=== PATIENT | female | born 1925 | race Asian ===

== ENCOUNTER 2016-06-16 18:10 | Observation (INO) | payer MEDICARE, MEDICAID ==
[~2016-06-16] VITALS: Ht 147.3 cm; Wt 54.5 kg
[~2016-06-16 18:10] MED LIST: ACET325T51 PO; CEPH500C PO; OMEG500C3 PO
[2016-06-16 18:15] VITALS: BP 168/73; PULSE 69; RESP 16; O2SAT 98
[2016-06-16 19:34] LABS: BASOPHILS % (AUTO) 0.2 % (0-3); EOSINOPHILS % (AUTO) 3.3 % (0-5); MONOCYTES % (AUTO) 11.4 % (4-12); Mean Corpuscular Hemoglobin 31.4 pg (27.0-35.0); Mean Corpuscular Volume 87.8 fL (81-100); NEUTROPHILS % (AUTO) 53.9 % (40-74); Platelet Count 201 bil/L (150-400)
--- NOTE | 2016-06-16 19:40 | ED.REPORT ---
HPI-General Illness Date of Service Jun 16, 2016 ED Provider: Pop Zurita MD Pt is an 89 year old Mandarin speaking female with a hx of HTN, UTI and hyperlipidemia presenting to the ED complaining of headaches, dizziness, weakness onset 5 days ago. Associated symptoms include body aches, nausea, cough , fatigue, increased urinary frequency, increased work to urinate, sore throat. Denies fever currently, but reports that the pt did have a mild fever at the beginning. Denies SOB or hx of lung problems. The pt is surendra to drink fluid okay , but has had a decreased appetite. The pt was seen in the ED 4 days ago and was discharged with a viral infection. The pt last took Tylenol twice yesterday. She reports that she got her flu shot this year. Nursing Notes Stated Complaint: DIZZINESS,NAUSEA Chief Complaint: General Complaint Nursing Notes Reviewed: Yes ([employer], [employer] not reconciled) Allergies: Uncoded Allergies: AN ANTIBIOTIC (Allergy, Unknown, 05/09/14) Scheduled Cephalexin (Cephalexin) 500 Mg Capsule 500 MG PO TID Scheduled PRN Acetaminophen (Acetaminophen) 325 Mg Tablet 650 MG PO Q4H PRN PRN For Pain Miscellaneous Medications [place]-3 Fatty Acids (Fish Oil) 500 Mg Capsule 500 MG PO General Time Seen by MD: 19:37 Chief Complaint Dizziness, Headache, Weakness Hx Obtained From: Patient, Daughter Arrived By: Walk-in Sudden in Onset?: No Onset Occurred: 5 days ago Symptom Duration: Since onset Severity: Current: No pain currently Severity: Maximum: No pain Recent Healthcare: No recent hospitalization, Recent doctor visit Similar Sx Previous: Yes Past Medical History Past Medical History Notes: PCP: Dr. Allison Admitted 04/05/2015 for headache, lightheadedness, hypertension MRI/MRA brain April 10 negative acute disease Echocardiogram March 2015 EF of 6065% Past Medical History Parkinson's Syndrome Denies ME. Arthritis, R knee Heartburn Reports: Hyperlipidemia, Hypertension Reports: Urinary tract infection Past Surgical History Pt denies. Smoking History Never Smoker Social History Alcohol Use: Denies alcohol use Drug Use: Denies drug use Other Social History: Good social support, Local resident Occupation lives with family 06/13/2016 Ambulatory Status Independent Review of Systems Full Review of Systems Constitutional: Reports: Fatigue, Denies: Fever Ears / Nose / Throat: Reports: Sore throat Respiratory: Reports: Non-productive cough, Denies: Shortness of breath GI: Reports: Nausea Female: Reports: Urinary frequency Neurologic: Reports: Dizziness, Headache, Weakness Complete sys rev & neg: except as marked. Physical Exam Vital Signs Vital Signs Date Time Temp Pulse Resp B/P Pulse Ox O2 Delivery O2 Flow Rate FiO2 06/16/16 20:46 67 15 121/63 100 Room Air 06/16/16 18:15 36.1 69 16 168/73 98 Room Air Initial VS: Reviewed, Vital signs abnormal (mild HTN) Head / Eyes: Atraumatic, Normocephalic, PERRL ENT: Mucous membranes moist, Conjunctiva normal, No scleral icterus Cardiovascular: Regular rate & rhythm, Heart sounds normal, Intact distal pulses Abdomen / GI: Soft, Non-tender, No guarding, No rebound, No distention Extremities: Vascular intact, Neuro intact, No swelling, No tenderness Skin: Warm, Dry, No cyanosis Neurologic: Alert, Oriented, Nonfocal Psychiatric: Mood/affect normal, Behavior normal, Normal thought content General/Constitutional: Awake, Alert, No acute distress Globally fatigued and weak. Respiratory / Chest: No respiratory distress Coarse breath sounds. Not tachypnic or dyspnic. Interpretation & Diagnostics Lab Results Interpretation Result Diagram: 06/16/16191506/16/16 191 Test 06/16/16 19:16 06/16/16 20:25 White Blood Count 4.5th/mm3 (3.8-10.1) Red Blood Count 4.01mil/mm3 (3.90-5.20) Hemoglobin 12.6g/dL (12.0-15.6) Hematocrit 35.2% (35.0-46.0) Mean Corpuscular Volume 87.8fL (81-100) Mean Corpuscular Hemoglobin 31.4pg (27.0-35.0) Mean Corpuscular Hemoglobin Concent 35.8% (32.0-37.0) Red Cell Distribution Width 11.5% (12.3-15.4) Platelet Count 201bil/L (150-400) Neutrophils (%) (Auto) 53.9% (40-74) Lymphocytes (%) (Auto) 31.0% (14-46) Monocytes (%) (Auto) 11.4% (4-12) Eosinophils (%) (Auto) 3.3% (0-5) Basophils (%) (Auto) 0.2% (0-3) Sodium Level 127mEq/L (134-144) Potassium Level 3.9mEq/L (3.5-5.2) Chloride Level 90mEq/L (97-108) Carbon Dioxide Level 22mmol/L (18-29) Blood Urea Nitrogen 11mg/dL (8-27) Creatinine 0.54mg/dL (0.57-1.00) Estimat Glomerular Filtration Rate 152mL/min (>59) Glucose Level 108mg/dL (60-99) Lactic Acid Level 1.4mmol/L (0.4-2.0) Calcium Level 8.7mg/dL (8.5-10.1) Total Bilirubin 0.2mg/dL (0.0-1.2) Aspartate Amino Transf (AST/SGOT) 40U/L (0-50) Alanine Aminotransferase (ALT/SGPT) 22U/L (0-32) Alkaline Phosphatase 77U/L (25-165) Total Protein 8.0g/dL (6.4-8.4) Albumin 3.7g/dL (3.4-5.0) Hold Dodd Top Tube Received (Received) Lab Results Interpretation: cBC normal CMP mild hyponatremia Influenza A positive Lactic acid normal Blood cultures pending ECG Interpretation ECG Interpretation: No ischemic changes. No interval changes. Time: 19:28 Interpreted by: ED physician Normal ECG Interpretation: Normal sinus rhythm X-Ray Chest Interpretation Chest Xray Interpretation: IMPRESSION: No acute cardiopulmonary disease. Dictated by: Segun Logan M.D. on 06/16/2016 at 20:53 View: Portable, 1 view Interpretation / Wet Read by: Interpret - Radiologist Re-Eval/Medical Decision Med Decision/Clinical Course This is an 89-year-old female who speaks Mandarin, remainder underneath helmet coverer was used with the patient and the family. His been ill for the past 5 days, with cough, congestion, body achesin the emergency department a few days ago had an extensive workup included a negative chest CT, it was suspected to have a viral syndrome. She was discharged on Tessalon Perles. The patient presents today in complaining of increasing profound fatigue, she is a little strength is a hard time getting out of bed, she is continuous dizziness, she has a persistent hacking cough, she gets a headache when she coughs. The Tessalon Perles as she thought that might be contributing to the dizziness. She had fevers and beginning the illness, but states she has not had fever for the past 2 days. Her appetite and markedly down, but there is family reports she is still taking fluids. However she has been so weak and so dizzy, that the patient and the family states she is not safe for discharge back to home. On exam the patient is not febrile, she has normal vitals, but she is globally weak. She has a mild cough, but is not in distress, and does not appear toxic. Her lungs are coarse, but again no tachypnea or dyspnea is evident. Abdomen is soft nontender, extrinsic atraumatic with globally weak. A repeat chest x-ray was negative for infiltrate. Blood work was normal. Influenza A is positive. Overall this is an 89-year-old females influenza A positive presents with profound ongoing global weakness to the point that she does not feel safe at home. Nonspecific dizziness, also likely secondary to influenza A. However she is not formally septic, she does not have markers of a secondary pneumonia, I had a recent CT of the chest, and today had a chest x-ray and is now laboratory findings to suggest a secondary infection. Nonetheless with the second visit, with a profound weakness inability in bili, and patient and family saying she is not safe at home, admission is warranted. Patient is receiving supportive IV fluids, given admission in the setting of influenza Tamiflu as been initiated despite the 5 day duration of initial illness. Case is discussed with hospitalist. Source of Hx: Old records Time of Eval: 20:26 Patient Status: Condition improved Re-Evaluation/Progress Note: Informed the pt of positive influenza. Consultation : Referral / Consult Name: Tootie Woodson MD Consulted With: Hospitalist Call Returned at: 21:14 Safety And Health Consultant: Will see patient, Agrees with plan, Accepts admit Differential Diagnosis: Positive: Influenza, Negative: Abdominal pain, Acute coronary syndrome, Neutropenia, Pneumonia, Syncope Counseled Regarding: Diagnosis, Lab results, Need for follow-up, When/why to return to ED Discharge & Departure Primary Impression: Influenza A Additional Impressions: Generalized weakness Dizziness Disposition: ADMITTED TO HOSPITAL Discharge Condition All VS Reviewed: Yes Condition: Improved Referrals: Anh Allison MD (PCP) Scribe Attestation Portions of this note were transcribed by Evelyn Sommer. I, Dr. Zurita personally performed the history, physical exam and medical decision-making; I reviewed and confirmed the accuracy of the information in the transcribed note. Signed by: Durga Kelly, 06/16/2016 at (TIME). copies to: Anh Allison MD, Matthew F MD Jun 16, 2016 19:40 EVELYN SOMMER Jun 16, 2016 19:45
[2016-06-16] MEDS ORDERED: 0.9% Sodium Chloride 1,000 ML IV ONE (20:10)
[2016-06-16 20:46] VITALS: BP 121/63; PULSE 67; RESP 15; O2SAT 100
--- NOTE | 2016-06-16 20:56 | DRSVH ---
PROCEDURE: X-RAY CHEST ONE VIEW, PORTABLE ([id number]) INDICATIONS: 89 year-old female with fever and cough for one week. TECHNIQUE: One view of the chest was acquired. COMPARISON: [facility], CR, XR CHEST 2VW, 06/13/2016, 16:02. [facility], CR , XR CHEST 1VW (PORTABLE), 07/10/2015, 11:41. [facility], CR, XR CHEST 1VW (PORTABLE), , 23:34. FINDINGS: Surgical changes and devices: None. Lungs and pleura: No pleural effusions or pneumothorax. Lungs are clear. Mediastinum: Mediastinal contours appear normal. Heart size is normal. There is aortic atheroscler osis. Bones and chest wall: No suspicious bony lesions. Overlying soft tissues appear unremarkable. IMPRESSION: No acute cardiopulmonary disease. Dictated by: Segun Logan M.D. on 06/16/2016 at 20:53 Approved by: Segun Logan M.D. on 06/16/2016 at 20:53
[2016-06-16 21:22] LABS: APPEARANCE,URINE CLEAR (CLEAR,HAZY); COLOR,URINE STRAW (YELLOW); OCCULT BLOOD,URINE TRACE (NEGATIVE); PH,URINE 6.5 (5.0-8.0); UROBILINOGEN,URINE NORMAL (NORMAL)
[2016-06-16 21:23] VITALS: BP 138/58; PULSE 65; RESP 18; O2SAT 98
[2016-06-16 21:24] VITALS: BP 138/58; PULSE 65; RESP 18; O2SAT 98
[2016-06-16] MEDS ORDERED: Polyethylene Glycol (PEG) 17 Gm Powder PO PRN (22:15)
[2016-06-16] MEDS ORDERED: Ondansetron 2 mg/mL 2 mL Inj IVPUSH PRN (22:15)
[2016-06-16] MEDS ORDERED: 0.9% Sodium Chloride 1,000 ML IV SCH (22:15)
[2016-06-16] MEDS ORDERED: Alum-Mag Hydrox-Simeth 30 mL Suspension PO PRN (22:15)
[2016-06-16 22:43] VITALS: BP 147/58; PULSE 67; RESP 19; O2SAT 98
[2016-06-16] MEDS ORDERED: Azithromycin Inj 500 MG in Dextrose 5% w/Vial Mate 250 ML IV SCH (23:00)
[2016-06-16] MEDS ORDERED: cefTRIAXone Inj 2,000 MG in IV Premix 1 EACH IV SCH (23:30)
[2016-06-16] MEDS: 0.9% Sodium Chloride 1,000 ML IV SCH (23:32)
--- NOTE | 2016-06-17 00:17 | PCM.HPMED ---
Subjective Date of Service Jun 17, 2016 Primary Provider: Admitting Physician: Tootie Woodson MD Primary Care Physician: Anh Allison MD Attending Physician: Tootie Woodson MD Chief Complaint: Patient is an 89-year-old female without significant medical history recently in [facility] 06/13/2016 with flulike symptoms and diagnosed upper respiratory track viral infection presents today with increase fatigue. Symptoms started about 5-6 days ago with initially, cough, chills, fever, and body aches. She went to the ED at that time with chest x-ray not suggestive of pneumonia, however, incidentally found bilateral lung nodular opacity instead. Further CT scan however was unremarkable. She was discharged home with Carmen Rocha for the cough. [id number] brought her back today due to her increasing fatigue. Patient still reports chills, decreased appetite, however no fevers, night sweats, nausea, vomiting, or diarrhea. Daughter-in- law did mention of a sick contact last week. Patient's son-in-law had the flu at that time. Patient admitted for medical observation, possible post viral pneumonia. Allergies Uncoded Allergies: AN ANTIBIOTIC (Allergy, Unknown, 05/09/14) Home Medications Medication list obtained from patient and external medication history Valsartan 80 mg daily Acetaminophen 325 mg 2 tab every 4 hours when necessary [place]-3 fatty acid 500 mg by mouth daily PMH Urinary incontinence Hypertension Dyslipidemia Surgical History Denies any surgical history Family History No family history of lung disease Social History Occupation: retired Hx Alcohol Use: No Hx Substance Use: No Hx Tobacco Use: No Smoking Status: Never Smoker Living Arrangement: with Family (son and [id number]) Exam Vital Signs Vital Sign - Last Date Time Temp Pulse Resp B/P Pulse Ox O2 Delivery O2 Flow Rate FiO2 06/16/16 22:43 37.4 67 19 147/58 98 Room Air Intake and Output 06/16/16 06/16/16 06/17/16 Cumulative From/Thru 15:00 23:00 07:00 06/16/16 18:15 - 06/16/16 23:51 Intake Total 700 ml 700 ml Balance 700 ml 700 ml Intake IV Total 700 ml 700 ml Exam General: No acute distress, well-developed, well-nourished, appropriately interactive HEENT: Normocephalic, atraumatic. External ears without defect. Pupils equal, round, and reactive to light and accommodation. Anicteric sclerae, moist conjunctivae, and no lid lag. Neck: Supple with full range of motion. No jugular venous distension. No bruits. No lymphadenopathy or thyromegaly. Cardiovascular: Regular rate and rhythm with no murmurs, rubs, or gallops appreciated Pulmonary: Mild crackles on the lower bases, no wheezes, coarse breaths. Normal respiratory effort with no use of accessory muscles. Abdomen: Bowel tones present. Soft, nontender, nondistended. No hepatosplenomegaly or masses appreciated. Extremities: No clubbing, cyanosis, edema, or lymphadenopathy appreciated. Skin: Normal temperature, turgor, and texture; no rash, ulcers, or subcutaneous nodules appreciated. Neurological: Cranial nerves grossly intact. Normal muscle strength, tone, and bulk. Reflexes, coordination, and sensory function within normal limits. No known gait impairment. Psychiatric: Normal mood and affect. Alert and oriented to person, place, and time. Lab and Diagnostics Result Diagram: 06/16/16191506/16/161915 X-Rays, CTs and MRIs PROCEDURE: CT CHEST WITH CONTRAST INDICATIONS: cough nodular opacities IMPRESSION: 1. No evidence of pulmonary nodular densities as suggested by CT. Dictated by: Mauricio Evans M.D. on 06/13/2016 at 17:51 PROCEDURE: X-RAY CHEST ONE VIEW, PORTABLE INDICATIONS: 89 year-old female with fever and cough for one week. IMPRESSION: No acute cardiopulmonary disease. Dictated by: Segun Logan M.D. on 06/16/2016 at 20:53 Assessment & Plan Pt 89yof without significant medical hx was recently here for flu-like symptoms returns with increase fatigue, tested positive for influenza A, admits for observation. Post-viral pneumonia - SIRS negative, no leukocytosis. - Recently in ED (06/13) for cold-like symptoms, d/c with Carmen Rocha - Influenza A positive today - Started Tamiflu in ED, added ceftriaxone with azithromycin for CAP coverage - Procalcitonin S. pneumoniae, legionella urine Ag, blood, urine, sputum culture pending Hyponatremia - uncertain etiology - Normal saline - Serum osmolality Hypertension - losartan 50mg daily DVT prophylaxis: heparin subQ Antipyretic: Acetaminophen PRN Antinausea: Ondansetron PRN Bowel regiment PRN Patient is admitted under observation status with expected length of stay LESS than 2 midnights due to severity of presenting symptoms, risk of adverse event, and complexity of treatment plan. Resuscitation Status: CPR: Attempt Resuscitation Attending Statement Pt seen and examined by myself and agree with above plan. Max Cowan DO Jun 17, 2016 00:17 Tootie Woodson MD Jun 17, 2016 06:25
[2016-06-17] MEDS: Heparin 5,000 Unit/mL Inj SUBQ SCH ×2 (02:19→08:30)
--- NOTE | 2016-06-17 04:47 | NUR ---
Arrival to unit Patient arrived to unit at 2235 from ED via [place]. Patient was able to ambulate with SBA to hospital bed. Consumer Marketing Manager was used during admission process. Patient denies any pain at this time. IV in left wrist is patent and is currently infusing NS @ 100cc/hr, with intermittent abx administration. Droplet Precautions are posted on door. Patient is currently on room air, and and denies and shortness of breath. Patient is hypertensive 147/58, with all other vitals stable. Will continue to monitor, and continue Q1 checks.
[2016-06-17 06:03] VITALS: BP 118/55; PULSE 53; RESP 16; O2SAT 98
[2016-06-17] MEDS: 0.9% Sodium Chloride 1,000 ML IV SCH (08:59)
[2016-06-17 09:41] LABS: BASOPHILS % (AUTO) 0.7 % (0-3); EOSINOPHILS % (AUTO) 3.3 % (0-5); MONOCYTES % (AUTO) 8.3 % (4-12); Mean Corpuscular Hemoglobin 31.2 pg (27.0-35.0); Mean Corpuscular Volume 89.5 fL (81-100); NEUTROPHILS % (AUTO) 39.8 % (40-74); Platelet Count 180 bil/L (150-400)
[2016-06-17 10:03] LABS: Phosphorus 2.6 mg/dL (2.5-4.9)
[2016-06-17 10:48] VITALS: BP 125/66; PULSE 58; RESP 15; O2SAT 98
[2016-06-17] MEDS ORDERED: OSLT75C PO (11:44)
--- NOTE | 2016-06-17 11:44 | PCM.DIMED ---
Discharge Instructions Date of Service Jun 17, 2016 Dates of Hospitalization Jun 16, 2016 at 21:09 Discharge Diagnosis Discharge Diagnosis # Influenza A infection,acute,poa # Hypertension ,chronic Diet Low fat, Low Sodium, Heart Healthy Activity Limited until seen by PCP Call your provider Fever or Chills, Shortness of breath, Bleeding, Chest pain, Vomitting, Excessive diarrhea, Weakness (unilateral) Patient Instructions You were hospitalized due to influenza A infection. Please take Tamiflu 75 mg by mouth twice a day for 5 days. Please continue your blood pressure medications as usual. Follow-up plan Please follow-up with PCP in 1 week Follow-up Provider: Anh Allison MD Follow-up with PCP in: 1 week Jerardo Greene MD Jun 17, 2016 11:43
--- NOTE | 2016-06-17 12:46 | NUR ---
Discharge Pt d/c'd home with family at 1245. Reviewed d/c' instruction w/ her daughter. No questions at this time. IV d/c's intact. Pt left w/ hard copy of RX and all belongings and was taken to her family's POV via w/c.
--- NOTE | 2016-06-17 12:46 | PCM.DC.MED ---
Discharge Summary Date of Service Jun 17, 2016 Dates of Hospitalization Date of Hospital Admission Jun 16, 2016 at 21:09 Date of Discharge: Jun 17, 2016 Providers: Admitting Physician: Tootie Woodson MD Primary Care Physician: Anh Allison MD Attending Physician: Tootie Woodson MD Diagnosis at Time of Discharge Diagnosis at Time of Discharge # Influenza A infection,acute,poa # Hypertension ,chronic Consultations No independent beauty consultant was involved on this case Procedures XRay, CTs & MRIs PROCEDURE: CT CHEST WITH CONTRAST INDICATIONS: cough nodular opacities IMPRESSION: 1. No evidence of pulmonary nodular densities as suggested by CT. Dictated by: Mauricio Evans M.D. on 06/13/2016 at 17:51 PROCEDURE: X-RAY CHEST ONE VIEW, PORTABLE INDICATIONS: 89 year-old female with fever and cough for one week. IMPRESSION: No acute cardiopulmonary disease. Dictated by: Segun Logan M.D. on 06/16/2016 at 20:53 Brief History as per HPI performed by Dr Black on 06/17/16 Patient is an 89-year-old female without significant medical history recently in [facility]-ED 06/13/2016 with flulike symptoms and diagnosed upper respiratory track viral infection presents today with increase fatigue. Symptoms started about 5-6 days ago with initially, cough, chills, fever, and body aches. She went to the ED at that time with chest x-ray not suggestive of pneumonia, however, incidentally found bilateral lung nodular opacity instead. Further CT scan however was unremarkable. She was discharged home with Tessalon Perles for the cough. [id number] brought her back today due to her increasing fatigue. Patient still reports chills, decreased appetite, however no fevers, night sweats, nausea, vomiting, or diarrhea. Daughter-in- law did mention of a sick contact last week. Patient's son-in-law had the flu at that time. Patient admitted for medical observation, possible post viral pneumonia. Hospital Course Pt 89yof without significant medical hx was recently here for flu-like symptoms returns with increase fatigue, tested positive for influenza A, admits for observation. # Influenza A infection - SIRS negative, no leukocytosis. - Recently in ED (06/13) for cold-like symptoms, d/c with Tessalon Perles - Influenza A positive - Started Tamiflu , continue for 5 days, initially started ceftriaxone with azithromycin for CAP coverage. Pro-calcitonin negative. Stop antibiotics - Patient initially reluctant to take medications. Explained to son and patient using language line. Agree to take Tamiflu #Hyponatremia , acute, POA, resolved - uncertain etiology - Improved with Normal saline Hypertension - losartan 50mg daily DVT prophylaxis: heparin subQ Antipyretic: Acetaminophen PRN Antinausea: Ondansetron PRN Bowel regiment PRN Disposition: Discharged home Condition on discharge stable Exam Vital Signs (Last) Date Time Temp Pulse Resp B/P Pulse Ox O2 Delivery O2 Flow Rate FiO2 06/17/16 10:48 36.6 58 15 125/66 98 Room Air Exam General: No acute distress, well-developed, well-nourished, appropriately interactive HEENT: Normocephalic, atraumatic. External ears without defect. Pupils equal, round, and reactive to light and accommodation. Anicteric sclerae, moist conjunctivae, and no lid lag. Neck: Supple with full range of motion. No jugular venous distension. No bruits. No lymphadenopathy or thyromegaly. Cardiovascular: Regular rate and rhythm with no murmurs, rubs, or gallops appreciated Pulmonary: Mild crackles on the lower bases, no wheezes, coarse breaths. Normal respiratory effort with no use of accessory muscles. Abdomen: Bowel tones present. Soft, nontender, nondistended. No hepatosplenomegaly or masses appreciated. Extremities: No clubbing, cyanosis, edema, or lymphadenopathy appreciated. Skin: Normal temperature, turgor, and texture; no rash, ulcers, or subcutaneous nodules appreciated. Neurological: Cranial nerves grossly intact. Normal muscle strength, tone, and bulk. Reflexes, coordination, and sensory function within normal limits. No known gait impairment. Psychiatric: Normal mood and affect. Alert and oriented to person, place, and time. Test 06/16/16 19:16 06/16/16 20:25 06/17/16 09:14 Osmolality 285 (275-300) Lactic Acid Level 1.4mmol/L (0.4-2.0) Procalcitonin < 0.05ng/mL (See Comment) Hold Dodd Top Tube Received (Received) Urine Color Straw (YELLOW) Urine Appearance Clear (CLEAR,HAZY) Urine pH 6.5 (5.0-8.0) Urine Specific [place] <1.005 (1.003-1.035) Urine Protein Negativemg/dL (NEG,TRACE) Urine Glucose (UA) Negativemg/dL (NEGATIVE) Urine Ketones Negativemg/dL (NEGATIVE) Urine Occult Blood Trace (NEGATIVE) Urine Nitrite Negative (NEGATIVE) Urine Bilirubin Negative (NEGATIVE) Urine Urobilinogen Normalmg/dL (NORMAL) Urine Leukocyte Esterase Trace (NEGATIVE) Urine RBC 0-2/hpf (0-2) Urine WBC 0-5/hpf (0-5) Urine Epithelial Cells Few/hpf (NONE-MOD) Urine Crystals None seen (NONE SEEN) Urine Bacteria Few/hpf (NONE-FEW) Urine Hyaline Casts None/lpf (NONE) Urine Granular Casts None seen (NONE SEEN) Urine Waxy Casts None seen (NONE SEEN) Urine Red Blood Cell Casts None seen (NONE SEEN) Urine White Blood Cell Casts None seen (NONE SEEN) Urine Mucus None seen (None Seen) Urine Trichomonas None seen (NONE SEEN) Urine Yeast None (NONE SEEN) Urinalysis Comment None Urine Culture Reflexed Indicated Urine Legionella pneumophilia Ag Negative (Negative) White Blood Count 3.0th/mm3 (3.8-10.1) Red Blood Count 3.62mil/mm3 (3.90-5.20) Hemoglobin 11.3g/dL (12.0-15.6) Hematocrit 32.4% (35.0-46.0) Mean Corpuscular Volume 89.5fL (81-100) Mean Corpuscular Hemoglobin 31.2pg (27.0-35.0) Mean Corpuscular Hemoglobin Concent 34.9% (32.0-37.0) Red Cell Distribution Width 11.7% (12.3-15.4) Platelet Count 180bil/L (150-400) Neutrophils (%) (Auto) 39.8% (40-74) Lymphocytes (%) (Auto) 47.9% (14-46) Monocytes (%) (Auto) 8.3% (4-12) Eosinophils (%) (Auto) 3.3% (0-5) Basophils (%) (Auto) 0.7% (0-3) Sodium Level 134mEq/L (134-144) Potassium Level 4.1mEq/L (3.5-5.2) Chloride Level 100mEq/L (97-108) Carbon Dioxide Level 21mmol/L (18-29) Blood Urea Nitrogen 6mg/dL (8-27) Creatinine 0.54mg/dL (0.57-1.00) Estimat Glomerular Filtration Rate 152mL/min (>59) Glucose Level 166mg/dL (60-99) Calcium Level 7.9mg/dL (8.5-10.1) Phosphorus Level 2.6mg/dL (2.5-4.9) Magnesium Level 2.0mg/dL (1.6-2.6) Total Bilirubin 0.2mg/dL (0.0-1.2) Aspartate Amino Transf (AST/SGOT) 35U/L (0-50) Alanine Aminotransferase (ALT/SGPT) 18U/L (0-32) Alkaline Phosphatase 61U/L (25-165) Total Protein 6.6g/dL (6.4-8.4) Albumin 3.3g/dL (3.4-5.0) Microbiology Results Positive for influenza A Discharge Medications Discharge Medications Oseltamivir Phosphate (Tamiflu) 10 Cap/Pkg Capsule 75 MG PO BID Prescribed by: DELROY PAYNE MD As needed Acetaminophen (Acetaminophen) 325 Mg Tablet 650 MG PO Q4H PRN PRN For Pain ( Reported) Miscellaneous Medications [place]-3 Fatty Acids (Fish Oil) 500 Mg Capsule 500 MG PO (Reported) Followup Plan Disposition: Home Follow-up plan Please follow-up with PCP in 1 week Discharge Diet: Low fat, Low Sodium, Heart Healthy Discharge Activity: Limited until seen by PCP Patient Instructions You were hospitalized due to influenza A infection. Please take Tamiflu 75 mg by mouth twice a day for 5 days. Please continue your blood pressure medications as usual. Follow-up Provider: Anh Allison MD Follow-up with PCP in: 1 week copies to: Anh Allison MD, Melaku MD Jun 17, 2016 12:46
--- NOTE | 2016-06-17 13:56 | NUR ---
Social Work Note: Initial Assessment/Discharge Data& Assessment: EMR reviewed. Per pt is medically ready for discharge. SW met with pt and pt family at bedside to discuss discharge planning, SW role explained. Geraldine Foley is a 89 year old female under observation for influenza. Pt has Medicare and [employer] insurance coverage. Pt sees Anh Allison MD for primary care. Pt lives in [place] with her daughter and is independent with ADL's at baseline. Pt daughter does stand by assist pt up the stairs to the second floor of the home. Pt does use a cane for long distances but does not use any DME on a regular basis. Pt does not have HH or SNF hx. Pt does not have LTC insurance or VA benefits. DPOA paperwork requested. Pt children to transport her home today. Pt and pt family deny any needs. No other discharge needs identified. Plan: Per pt is medically ready to discharge home via POV. Pt children to transport her home today. Pt and pt family deny any needs. No other discharge needs identified. RUBÉN Kwan Addendum: 06/17/16 at 1400 by CLAIRE SCHMITT Amended: Links added.
== END 2016-06-17 12:45 | disposition home or self-care (01) ==
LOC: SED 18:10 → OSC 21:09 → INTOOBSV 21:09 → OBSVTOIN 21:09
PROVIDERS: ADMIT Specialist; ATTEND Specialist
DX: J10.1 Influenza due to other identified influenza virus with other respiratory manifestations (principal); I10 Essential (primary) hypertension; E87.1 Hypo-osmolality and hyponatremia
CPT/HCPCS: 36415; 71010; 80053; 81000; 82308; 83605; 83735; 83930; 84100; 85025; 86403; 87040; 87070; 87086; 87205; 87449; 87804; 96360; 96361; 99285; J0456; J0696; J1644; J7030

== ENCOUNTER 2016-11-23 15:50 | Observation (INO) | payer MEDICARE, MEDICAID ==
[~2016-11-23] VITALS: Ht 147.3 cm; Wt 52.3 kg
[~2016-11-23 15:50] MED LIST changes: -CEPH500C PO; +OSLT75C PO
[2016-11-23 15:59] VITALS: BP 175/65; PULSE 65; RESP 14; O2SAT 99
[2016-11-23 16:14] LABS: BASOPHILS % (AUTO) 0.4 % (0-3); EOSINOPHILS % (AUTO) 2.8 % (0-5); MONOCYTES % (AUTO) 7.8 % (4-12); Mean Corpuscular Hemoglobin 31.6 pg (27.0-35.0); Mean Corpuscular Volume 91.8 fL (81-100); NEUTROPHILS % (AUTO) 40.4 % (40-74); Platelet Count 263 bil/L (150-400)
--- NOTE | 2016-11-23 16:38 | ED.REPORT ---
HPI-Chest Pain 40 and Over Date of Service Nov 23, 2016 ED Provider: Yue David MD The pt is an 89 y/o female w/ a hx of HTN presenting to the ED via EMS due to chest pain onset 1200. Her BP was 160 this morning before taking her medication and she reports her hands and feet feeling numb. She also describes her heart feeling "numb" and "hard" which she has experienced before for which she came to the ED.The pt also reports feeling dizzy , constipation and needing to strain to urinate. Denies pain w/ deep inspirations, fever, cough, or diarrhea.She lives at home and has never used nitroglycerin. A [employer] archives specialist was used. Nursing Notes Stated Complaint: CHEST PAIN Chief Complaint: Chest Pain Nursing Notes Reviewed: Yes Allergies: Coded Allergies: No Known Allergies (Unverified , 11/23/16) Scheduled Fish Oil/Dha/Epa (Fish Oil 1,200 mg Fish Oil) 1 Each Capsule 1 EACH PO DAILY Valsartan (Valsartan) 80 Mg Tablet 80 MG PO DAILY Scheduled PRN Acetaminophen (Acetaminophen) 325 Mg Tablet 650 MG PO Q4H PRN PRN For Fever Gluc/Melquiades-MSM#1/Vit C/Giovanni/Bor (Deeoice-Kygpv-JNC Complex Cplt) 1 Each Tablet 1 EACH PO DAILY PRN PRN JOINT PAIN General Time Seen by MD: 16:37 Chief Complaint Chest pain Hx Obtained From: Patient, Daughter Arrived By: Ambulance Sudden in Onset?: Yes Onset Occurred: 5 - 8 hours ago Recent Healthcare: No recent hospitalization, Recent doctor visit Similar Sx Previous: Yes Past Medical History Past Medical History Notes: PCP: Dr. Allison Admitted 04/05/2015 for headache, lightheadedness, hypertension MRI/MRA brain April 10 negative acute disease Echocardiogram March 2015 EF of 6065% Past Medical History Parkinson's Syndrome Denies [place]. Arthritis, R knee Heartburn Reports: Hyperlipidemia, Hypertension Reports: Urinary tract infection Past Surgical History Pt denies. Smoking History Never Smoker Social History Alcohol Use: Denies alcohol use Drug Use: Denies drug use Other Social History: Good social support, Local resident Occupation lives with family 06/13/2016 Ambulatory Status Independent Review of Systems Denies pain w/ deep inspiration Constitutional: Denies: Fever Respiratory: Denies: Non-productive cough Cardiovascular: Reports: Chest pain GI: Denies: Diarrhea Neurologic: Reports: Dizziness, Numbness (In hands and feet ) Complete sys rev & neg: except as marked. Physical Exam Initial Vital Signs Vital Signs (First) Date Time Temp Pulse Resp B/P Pulse Ox O2 Delivery O2 Flow Rate FiO2 11/23/16 15:59 36.8 65 14 175/65 99 Room Air Initial VS: Reviewed General/Constitutional: Awake, No acute distress Behavior: Positive: Anxious Respiratory / Chest: Atraumatic, Breath sounds NL, Breath sounds = bilat, No rales, No rhonchi, No wheezing Hyperventilating Cardiovascular: Heart rate NL, Regular rhythm, Heart sounds NL Lower Ext Edema: Positive: Bilateral 1+ Good perfusion Abdomen: Atraumatic, Soft, Non-tender Neck: Atraumatic, Supple, Full range of motion Back: Atraumatic, Full range of motion Skin: Atraumatic, Color NL, No rash, Warm, Dry Neurologic: Oriented X3, Speech NL Psychiatric: Affect NL, Mood NL Head / Eyes: Atraumatic, Normocephalic ENT: Atraumatic, Airway patent Interpretation & Diagnostics Lab Results Interpretation Result Diagram: 11/23/16 1611 11/23/16 1611 Test 11/23/16 16:11 White Blood Count 8.2th/mm3 (3.8-10.1) Red Blood Count 3.76mil/mm3 (3.90-5.20) Hemoglobin 11.9g/dL (12.0-15.6) Hematocrit 34.5% (35.0-46.0) Mean Corpuscular Volume 91.8fL (81-100) Mean Corpuscular Hemoglobin 31.6pg (27.0-35.0) Mean Corpuscular Hemoglobin Concent 34.5% (32.0-37.0) Red Cell Distribution Width 11.7% (12.3-15.4) Platelet Count 263bil/L (150-400) Neutrophils (%) (Auto) 40.4% (40-74) Lymphocytes (%) (Auto) 48.5% (14-46) Monocytes (%) (Auto) 7.8% (4-12) Eosinophils (%) (Auto) 2.8% (0-5) Basophils (%) (Auto) 0.4% (0-3) Sodium Level 126mEq/L (134-144) Potassium Level 5.0mEq/L (3.5-5.2) Chloride Level 86mEq/L (97-108) Carbon Dioxide Level 19mmol/L (18-29) Blood Urea Nitrogen 15mg/dL (8-27) Creatinine 0.48mg/dL (0.57-1.00) Estimat Glomerular Filtration Rate 174mL/min (>59) Glucose Level 95mg/dL (60-99) Calcium Level 7.1mg/dL (8.5-10.1) Magnesium Level 1.3mg/dL (1.6-2.6) Total Bilirubin 0.5mg/dL (0.0-1.2) Aspartate Amino Transf (AST/SGOT) 26U/L (0-50) Alanine Aminotransferase (ALT/SGPT) 14U/L (0-32) Alkaline Phosphatase 72U/L (25-165) Total Protein 8.2g/dL (6.4-8.4) Albumin 4.0g/dL (3.4-5.0) Triglycerides Level 111mg/dL (0-149) Cholesterol Level 190mg/dL (100-199) LDL Cholesterol, Calculated 110.800mg/dL (0-99) VLDL Cholesterol 22.200mg/dL HDL Cholesterol 57mg/dL (>39) Cholesterol/HDL Ratio 3.33 (0.0-4.4) Thyroid Stimulating Hormone (TSH) 1.650uIU/mL (0.450-4.500) ECG Interpretation ECG Interpretation: Rate 59 Normal sinus rhythm Abnormal R-wave progression, early transition No acute ischemia Similar to 06/16/16 Time: 07:28 Interpreted by: Director Electrical Engineering X-Ray Chest Interpretation Chest Xray Interpretation: IMPRESSION: Source of chest pain is not seen. Dictated by: Shola Wetzel M.D. on 11/23/2016 at 16:42 Approved by: Shola Wetzel M.D. on 11/23/2016 at 16:43 View: Portable, 1 view Interpretation / Wet Read by: Interpret - Radiologist Re-Eval/Medical Decision Med Decision/Clinical Course 89-year-old Mandarin speaking woman presents with her family significantly anxious and hyperventilating complaining of a hard numbness in her chest and tingling in feet and hands. When her breathing slows the tingling in the feet and hands does improve but the hardness in her chest continues. Communication is challenging with family dynamics and Mandarin speaking. Prover is used. She has had similar presentation before that time had influenza A. No evidence of any infectious etiology at this time. Multiple electrolyte slow could certainly explain some of her symptoms including low sodium low magnesium low potassium and low calcium. At this point we will anticipate admission for observation and correction of electrolyte abnormalities and reevaluation Source of Hx: Old records Consultation : Referral / Consult Name: Roberto Beal Consulted With: Hospitalist Call Returned at: 18:03 Learning And Development Analyst: Will see patient, Agrees with eval, Agrees with plan, Accepts admit Counseled Regarding: Diagnosis, Lab results, Need for admission Discharge & Departure Primary Impression: Generalized weakness Additional Impressions: Hyponatremia Hypocalcemia Hypomagnesemia Anemia of unknown etiology Disposition: ADMITTED TO HOSPITAL Discharge Condition All VS Reviewed: Yes Condition: Stable Referrals: Anh Allison MD (PCP) Scribe Attestation Portions of this note were transcribed by Bc Condon. I, Dr. David personally performed the history, physical exam and medical decision-making; I reviewed and confirmed the accuracy of the information in the transcribed note. Signed by : Durga Thomas, 11/23/16 and 1750. copies to: Anh Allison MD, Shawna L MD Nov 23, 2016 16:38 Bc Condon Nov 23, 2016 17:50
[2016-11-23 16:44] LABS: TROPONIN T < 0.010 ug/L (0.0-0.011)
--- NOTE | 2016-11-23 16:44 | DRSVH ---
PROCEDURE: X-RAY CHEST ONE VIEW, PORTABLE ([id number]) INDICATIONS: CP TECHNIQUE: One view of the chest was acquired. COMPARISON: [facility], CR, XR CHEST 1VW (PORTABLE), [facility]13/2016, 16:02. FINDINGS: Surgical changes and devices: None. Lungs and pleura: No pleural effusions or pneumothorax. Lungs are clear. Mediastinum: Mediastinal contours appear normal. Heart size is normal. Bones and chest wall: No suspicious bony lesions. Overlying soft tissues appear unremarkable. IMPRESSION: Source of chest pain is not seen. Dictated by: Shola Wetzel M.D. on 11/23/2016 at 16:42 Approved by: Shola Wetzel M.D. on 11/23/2016 at 16:43
[2016-11-23 16:52] LABS: Magnesium 1.3 mg/dL (1.6-2.6)
[2016-11-23] MEDS ORDERED: LORazepam 0.5 mg Tablet PO ONE (16:55)
[2016-11-23] MEDS ORDERED: Potassium Chloride 20 mEq SR Tablet PO ONE (17:40)
[2016-11-23] MEDS ORDERED: 0.9% Sodium Chloride 1,000 ML IV ONE (17:40)
[2016-11-23] MEDS ORDERED: Magnesium Sulf 2 Gm/50mL Water 2 GM in IV Premix 1 EACH IV ONE (17:40)
[2016-11-23] MEDS ORDERED: VALS80TA25 PO (17:45)
[2016-11-23] MEDS ORDERED: GLUC-91 PO (17:45)
[2016-11-23] MEDS ORDERED: FISH1CAP15 PO (17:47)
[2016-11-23] MEDS ORDERED: 0.9% Sodium Chloride 1,000 ML IV SCH (18:04)
[2016-11-23 18:05] VITALS: PULSE 68; RESP 19
[2016-11-23] MEDS ORDERED: Ondansetron 2 mg/mL 2 mL Inj IVPUSH PRN ×2 (18:05→20:30)
[2016-11-23] MEDS ORDERED: Alum-Mag Hydrox-Simeth 30 mL Suspension PO PRN ×2 (18:05→20:30)
[2016-11-23 18:16] VITALS: BP 167/76; PULSE 67; RESP 26
[2016-11-23 19:40] VITALS: BP 163/67; PULSE 55; RESP 14; O2SAT 98
--- NOTE | 2016-11-23 19:59 | NUR ---
Admit Pt arrived onto unit approx 1910 via hospital bed, brought by material handling technician. Report from ED given to day shift prior to arrival, this nurse received report from MOHAN Heath. Pt feels dizzy, no pain. VSS, RA, BP 163/67. Ambulated to [facility] with 2P asst. Used Rotary Drill Rig Operator on a stick to converse with pt and family. GrandsonJhon speaks Nigerian. Oriented patient and family to unit, call light, etc. and started fluids as ordered. Frequent rounding continues.
[2016-11-23] MEDS: 0.9% Sodium Chloride 1,000 ML IV SCH (20:27)
[2016-11-23] MEDS ORDERED: Polyethylene Glycol (PEG) 17 Gm Powder PO PRN (20:30)
--- NOTE | 2016-11-23 21:49 | PCM.HPMED ---
Subjective Date of Service Nov 23, 2016 Primary Provider: Admitting Physician: Roberto Beal Primary Care Physician: Anh Allison MD Attending Physician: Roberto Beal Admit Status: From the Emergency Department Chief Complaint: Chest pressure, generalized weakness History of Present Illness: Ms. Foley is a 89-year-old female with past medical history of hypertension, hyperlipidemia and reported anxiety who presented to the ED via EMS secondary to chest pain 1 day. Patient is Mandarin speaking only, gear cutting machine set up operator services used as well as multiple family members present in the room. When asked how she feels she says her only complaints are weakness and a hardness in her chest. When she arrived in the ED she reported that her hands and feet felt numb though when her hyperventilation was controlled the sensation dissipated. Her chest heaviness feels better than when she first arrived but still somewhat present. She denies any chest pain, nausea vomiting, headache, visual changes, shortness of breath or cough, fever or exposure to sick contacts. She does state that she has some dizziness (this is resolved at time of interview), chronic constipation, chronic decreased urinary output, chronic chills and chronic lower extremity pain 45 years. When interviewed further about her chest hardness her family reveals that she has had these symptoms before and they are normally brought on by "stress". She has never been told that she has had anxiety, though when explained the symptoms of an anxiety attack she agrees that they are consistent with her symptoms felt today and in the past, family present in the room also concur. She also states a generalized weakness with decreased oral intake of recent. In the ED EKG is showing a rate of 59 with normal sinus rhythm, abnormal R-wave progression, early transition no acute ischemia. Similar to previous EKG. Chest x-ray clear, source of chest pain not seen. Lab values are significant for hyponatremia, hypochloremia hypomagnesemia, hypocalcemia and mild anemia. Troponins negative 1, WBC normal. Patient admitted under observational status for cardiac monitoring and electrolyte repletion. PCP Dr. Allison Review of Systems: A comprehensive review of systems was conducted with the patient and found to be negative except as above in the history of present illness. Allergies Coded Allergies: No Known Allergies (Unverified , 11/23/16) Home Medications Acetaminophen (Acetaminophen) 325 Mg Tablet 650 MG PO Q4H PRN PRN For Fever Gluc/Melquiades-MSM#1/Vit C/Giovanni/Bor (Qsulqdo-Hgmpr-ZEN Complex Cplt) 1 Each Tablet 1 EACH PO DAILY PRN PRN JOINT PAIN Per outpatient [facility] records: Diovan Mupirocin 2% ointment PMH Parkinson's Syndrome Denies [place]. Arthritis, R knee Heartburn Reports: Hyperlipidemia, Hypertension Reports: Urinary tract infection Per [facility] Records: Pneumonia Hypertension Dyslipidemia Anemia Urinary incontinence Surgical History Patient reports none Family History from stroke No reported family history of any disease process Social History Hx Alcohol Use: No Hx Substance Use: No Hx Tobacco Use: No Smoking Status: Never Smoker Living Arrangement: with Family Exam Vital Signs Vital Sign - Last Date Time Temp Pulse Resp B/P Pulse Ox O2 Delivery O2 Flow Rate FiO2 11/23/16 19:40 55 14 163/67 98 Room Air 11/23/16 15:59 36.8 Exam General: Awake alert lying in hospital bed in no acute distress, well-developed , well-nourished, appropriately interactive, multiple family members at bedside HEENT: Normocephalic, atraumatic. External ears without defect. Pupils equal, round, and reactive to light and accommodation. Anicteric sclerae, moist conjunctivae, and no lid lag. Oropharynx free of erythema and cobble stoning with moist mucosa. Neck: Supple with full range of motion. No jugular venous distension. No bruits. No lymphadenopathy or thyromegaly. Cardiovascular: Regular rate and rhythm with no murmurs, rubs, or gallops appreciated Pulmonary: Clear to auscultation bilaterally with no crackles, wheezes, or rhonchi. Normal respiratory effort with no use of accessory muscles. Abdomen: Bowel tones present. Soft, nontender to palpation 4 quadrants. Nondistended Extremities: No clubbing, cyanosis, mild lower extremity edema to ankles Skin: Normal temperature, turgor, and texture Neurological: Cranial nerves grossly intact. Psychiatric: Normal mood and affect. Hard of hearing, responds appropriately to questions. Lab and Diagnostics Result Diagram: 11/23/16 1611 11/23/16 1611 X-Rays, CTs and MRIs . X-RAY CHEST ONE VIEW, PORTABLE IMPRESSION: Source of chest pain is not seen. Dictated by: Shola Wetzel M.D. on 11/23/2016 at 16:42 12-lead ECG Heart rate 90, sinus rhythm. Abnormal R-wave progression with early transition. No ischemic changes. Assessment & Plan Ms. Foley is a 89-year-old female with past medical history of hypertension, hyperlipidemia and reported anxiety admitted for chest pressure, and electrolyte disturbances. Chest pain/pressure. Present on admission. Improving - Differential includes chest discomfort secondary to hyperventilation, electrolyte disturbances, GERD - Cardiac risk factors age, history of hypertension and reported history of hyperlipidemia - EKG showed abnormal R-wave progression, no signs of ischemia - CXR as above - Initial troponin negative, continue to trend - Telemetry - Last echo 04/10/2015 shows EF 6065% with no focal wall motion abnormalities - Repeat Echocardiogram ordered - Electrolyte repletion - IV fluids - Lipid panel pending - Continue to monitor Hyponatremia. Chronic. Present on admission. Ongoing - Record review shows hyponatremia dating back to 2009 - Post likely secondary to nutritional depletion - Gentle hydration with normal saline 100 mL per hour - Continue to monitor Hypomagnesemia. Acute. Present on admission. Ongoing - Mg 1.3 on admit - 2 g magnesium IV given in ED - Continue to monitor Hypocalcemia. Acute on chronic. Present on admission. Ongoing - Corrected calcium to 7.1 - Calcium replacement PO Hypertension. Present on admission. Ongoing - Continue home Valsartan Possible anxiety. Present on admission. Ongoing - Patient given 0.5 mg lorazepam in ED with good effect - Precaution in additional benzodiazepine administration - Consider addition of an SSRI - Continue to monitor Anemia. Acute on chronic. Present on admission. Ongoing - Hemoglobin 11.9 at or above baseline based on previous records - Consider outpatient workup History of GERD - Famotidine. Present on admission. Ongoing History urinary retention - Post void residual bladder scan ordered Patient Status: Patient was admitted under inpatient status with expected length of stay greater than two midnights due to severity of presenting symptoms , risk of adverse event, and complexity of treatment plan. Pain Evaluation: Adequate Pain Control VTE Prophylaxis: Sub-Q Heparin (Unfractionated) Resuscitation Status: CPR: Attempt Resuscitation Attending Statement The patient was seen and examined together with house staff on 11/23/2016 and I agree with the history, exam and plan as outlined in the note above. PRISCILLA JACKSON DO Nov 23, 2016 20:34 Jamilah Wheatley DO Nov 24, 2016 06:35
[2016-11-24 00:14] VITALS: BP 152/77; PULSE 51; RESP 16; O2SAT 98
[2016-11-24 01:08] VITALS: PULSE 61
[2016-11-24] MEDS: Heparin 5,000 Unit/mL Inj SUBQ SCH ×2 (01:43→08:17)
[2016-11-24 01:59] LABS: APPEARANCE,URINE CLEAR (CLEAR,HAZY); COLOR,URINE STRAW (YELLOW); OCCULT BLOOD,URINE NEGATIVE (NEGATIVE); PH,URINE 6.5 (5.0-8.0)
[2016-11-24 02:00] LABS: UROBILINOGEN,URINE NORMAL (NORMAL)
[2016-11-24 04:32] VITALS: BP 144/63; PULSE 53; RESP 16; O2SAT 98
[2016-11-24] MEDS: 0.9% Sodium Chloride 1,000 ML IV SCH (05:59)
[2016-11-24 06:12] VITALS: PULSE 54
--- NOTE | 2016-11-24 06:15 | NUR ---
Bladder Scan/Incontinence Per physician orders, post-void bladder scan performed at approx 2300 last night, showing no residual. Pt incontinent of urine due to urgency and unable to get to BSC without leakage. Pt strains during urination to release flow. Urine sample submitted to lab. Attentive care given for cleaning up patient, bed and room post voiding. 1 person asst to BSC, patient still feeling dizzy. Son at bedside. Frequent rounding continues.
[2016-11-24 07:09] LABS: BASOPHILS % (AUTO) 0.8 % (0-3); EOSINOPHILS % (AUTO) 1.6 % (0-5); MONOCYTES % (AUTO) 10.2 % (4-12); Mean Corpuscular Hemoglobin 31.5 pg (27.0-35.0); NEUTROPHILS % (AUTO) 47.8 % (40-74); Platelet Count 221 bil/L (150-400)
[2016-11-24 08:06] LABS: TROPONIN T 0.01 ug/L (0.0-0.011)
[2016-11-24 08:15] VITALS: BP 155/69; PULSE 53; RESP 16; O2SAT 96
[2016-11-24 08:17] LABS: Magnesium 2.3 mg/dL (1.6-2.6)
--- NOTE | 2016-11-24 11:22 | NUR ---
Social Work- Initial Assessment/Discharge Data: See Initial Assessment. Pt is a 89 year old female admitted 11/23/16 for weakness, hyponatremia, hypocalcemia per H&P. Pt's payor is [facility] and [facility]. Pt's PCP is Anh Allison MD. SW met with pt and daughter in law at bedside to discuss discharge planning, SW role explained with the assistance of the Language Line [employer] Kazakh Retail Sales Associate Bilingual. Pt alert and oriented x3. Pt resides in [place] with her family in a two story home with ten steps inside. Pt uses the railing to navigate the stairs, spends the majority of her day on the main level. Pt uses no DME inside the house, cruises on counters and furniture. Pt uses a cane to ambulate longer distances. Pt does not drive. Pt has no HH or SNF experience. Pt reports her family takes care of her. Pt is largely independent, receives minimal assistance with chores, meal prep, housekeeping, meds etc. Daughter in law confirms this. Pt has no LTC or VA benefits. Pt has no DPOA on file, pt declines information regarding this at this time. Pt is likely to discharge today after her Echo results are read. No discharge needs identified at this time. SW placed phone number and plan on whiteboard. SW will continue to follow if pt does not discharge today. Assessment: Pt who resides with and receives assistance from family. Plan: Pt is likely to discharge today after her Echo results are read. Pt to discharge home with family to transport via POV. No discharge needs identified at this time. SW will continue to follow if pt does not discharge today. RUBÉN Kelley Addendum: 11/24/16 at 1127 by PIOTR SCHMITT Amended: Links added.
[2016-11-24] MEDS ORDERED: PANT20T PO (13:33)
--- NOTE | 2016-11-24 13:33 | PCM.DIMED ---
Discharge Instructions Date of Service Nov 24, 2016 Dates of Hospitalization Nov 23, 2016 at 18:15 Discharge Diagnosis Discharge Diagnosis # Chest pain/pressure. Present on admission. Improved likely due to GERD #Hypertension. Present on admission. Ongoing #Anemia. Acute on chronic. Present on admission. Ongoing # History of GERD # History urinary retention Diet Discharge Diet: Heart Healthy Activity Discharge Activity: Limited until seen by PCP Call your provider Call your provider for: Fever or Chills, Shortness of breath, Bleeding, Chest pain, Vomitting, Excessive diarrhea, Weakness (unilateral) Patient Instructions Patient Instructions You were hospitalized due to chest pain > EKg and cardiac enzymes negative for heart attack. Pain may be due to acid reflux.Please take protonix as prescribed. Please follow up with Dr Allison in 1 week . Follow-up Provider: Anh Allison MD Follow-up with PCP in: 1 week Jerardo Greene MD Nov 24, 2016 13:33
--- NOTE | 2016-11-24 13:46 | PCM.DC.MED ---
Discharge Summary Date of Service Nov 24, 2016 Dates of Hospitalization Date of Hospital Admission Nov 23, 2016 at 18:15 Date of Discharge: Nov 24, 2016 Providers: Admitting Physician: Jamilah Wheatley DO Primary Care Physician: Anh Allison MD Attending Physician: Roberto Beal Diagnosis at Time of Discharge Diagnosis at Time of Discharge # Chest pain/pressure. Present on admission. Improved likely due to GERD #Hypertension. Present on admission. Ongoing #Anemia. Acute on chronic. Present on admission. Ongoing # History of GERD # History urinary retention Consultations none Procedures XRay, CTs & MRIs . X-RAY CHEST ONE VIEW, PORTABLE IMPRESSION: Source of chest pain is not seen. Dictated by: Shola Wetzel M.D. on 11/23/2016 at 16:42 ECG 12 Lead Heart rate 90, sinus rhythm. Abnormal R-wave progression with early transition. No ischemic changes. Brief History per HPI Ms. Foley is a 89-year-old female with past medical history of hypertension, hyperlipidemia and reported anxiety who presented to the ED via EMS secondary to chest pain 1 day. Patient is Mandarin speaking only, other sports official services used as well as multiple family members present in the room. When asked how she feels she says her only complaints are weakness and a hardness in her chest. When she arrived in the ED she reported that her hands and feet felt numb though when her hyperventilation was controlled the sensation dissipated. Her chest heaviness feels better than when she first arrived but still somewhat present. She denies any chest pain, nausea vomiting, headache, visual changes, shortness of breath or cough, fever or exposure to sick contacts. She does state that she has some dizziness (this is resolved at time of interview), chronic constipation, chronic decreased urinary output, chronic chills and chronic lower extremity pain 45 years. When interviewed further about her chest hardness her family reveals that she has had these symptoms before and they are normally brought on by "stress". She has never been told that she has had anxiety, though when explained the symptoms of an anxiety attack she agrees that they are consistent with her symptoms felt today and in the past, family present in the room also concur. She also states a generalized weakness with decreased oral intake of recent. In the ED EKG is showing a rate of 59 with normal sinus rhythm, abnormal R-wave progression, early transition no acute ischemia. Similar to previous EKG. Chest x-ray clear, source of chest pain not seen. Lab values are significant for hyponatremia, hypochloremia hypomagnesemia, hypocalcemia and mild anemia. Troponins negative 1, WBC normal. Patient admitted under observational status for cardiac monitoring and electrolyte repletion. PCP Dr. Allison Hospital Course Ms. Foley is a 89-year-old female with past medical history of hypertension, hyperlipidemia and reported anxiety admitted for chest pressure, and electrolyte disturbances. # Chest pain/pressure. Present on admission. Improving -Likely due to GERD. Symptoms/chest pain resolved now. Denies diaphoresis or dyspnea -Prescribed Protonix 20 mg twice a day - EKG showed abnormal R-wave progression, no signs of ischemia, unchanged from baseline - CXR as above - troponin negative 3 - Telemetry unrevealing - Last echo 04/10/2015 shows EF 60-65% with no focal wall motion abnormalities - Repeat Echocardiogram ordered but echo department state they have 17 echos pending today/Saturday. Echocardiogram is probably very low yield. Recommend follow-up with PCP and get echocardiogram done if continues to have symptoms. Patient and daughter also do not want to wait for echocardiogram: Daughter states she will follow-up with Dr. Allison in the next few days # Hyponatremia. Chronic. Present on admission. Resolved - Record review shows hyponatremia dating back to 2009. Initial sodium 123 improved to 140. Very unlikely initial Na is correct. All electrolytes with low. Possible due to diluted sample #Hypomagnesemia. Acute. Present on admission. Ongoing - Mg 1.3 on admit - 2 g magnesium IV given in ED - Continue to monitor #Hypocalcemia. Acute on chronic. Present on admission. Ongoing - Corrected calcium to 7.1 - Calcium replacement PO #Hypertension. Present on admission. Ongoing - Continue home Valsartan #Possible anxiety. Present on admission. Ongoing - Patient given 0.5 mg lorazepam in ED with good effect - Precaution in additional benzodiazepine administration - Consider addition of an SSRI outpatient if continues to have symptoms #Anemia. Acute on chronic. Present on admission. Ongoing - Hemoglobin 11.9 at or above baseline based on previous records - Consider outpatient workup #History of GERD #History urinary retention Disposition: Discharged home Condition on discharge stable and improved Exam Vital Signs (Last) Date Time Temp Pulse Resp B/P Pulse Ox O2 Delivery O2 Flow Rate FiO2 11/24/16 08:15 36.6 53 16 155/69 96 Room Air Exam General: Awake alert lying in hospital bed in no acute distress, well-developed , well-nourished, appropriately interactive, multiple family members at bedside HEENT: Normocephalic, atraumatic. External ears without defect. Pupils equal, round, and reactive to light and accommodation. Anicteric sclerae, moist conjunctivae, and no lid lag. Oropharynx free of erythema and cobble stoning with moist mucosa. Neck: Supple with full range of motion. No jugular venous distension. No bruits. No lymphadenopathy or thyromegaly. Cardiovascular: Regular rate and rhythm with no murmurs, rubs, or gallops appreciated Pulmonary: Clear to auscultation bilaterally with no crackles, wheezes, or rhonchi. Normal respiratory effort with no use of accessory muscles. Abdomen: Bowel tones present. Soft, nontender to palpation 4 quadrants. Nondistended Extremities: No clubbing, cyanosis, mild lower extremity edema to ankles Skin: Normal temperature, turgor, and texture Neurological: Cranial nerves grossly intact. Psychiatric: Normal mood and affect. Hard of hearing, responds appropriately to questions Test 11/23/16 16:11 11/24/16 01:38 11/24/16 06:55 Triglycerides Level 111mg/dL (0-149) Cholesterol Level 190mg/dL (100-199) LDL Cholesterol, Calculated 110.800mg/dL (0-99) VLDL Cholesterol 22.200mg/dL HDL Cholesterol 57mg/dL (>39) Cholesterol/HDL Ratio 3.33 (0.0-4.4) Thyroid Stimulating Hormone (TSH) 1.650uIU/mL (0.450-4.500) Urine Color Straw (YELLOW) Urine Appearance Clear (CLEAR,HAZY) Urine pH 6.5 (5.0-8.0) Urine Specific [place] 1.003 (1.003-1.035) Urine Protein Negativemg/dL (NEG,TRACE) Urine Glucose (UA) Negativemg/dL (NEGATIVE) Urine Ketones Negativemg/dL (NEGATIVE) Urine Occult Blood Negative (NEGATIVE) Urine Nitrite Negative (NEGATIVE) Urine Bilirubin Negative (NEGATIVE) Urine Urobilinogen Normalmg/dL (NORMAL) Urine Leukocyte Esterase Negative (NEGATIVE) Urine RBC 0-2/hpf (0-2) Urine WBC 0-5/hpf (0-5) Urine Epithelial Cells Occasional/hpf (NONE-MOD) Urine Crystals None seen (NONE SEEN) Urine Bacteria None/hpf (NONE-FEW) Urine Hyaline Casts None/lpf (NONE) Urine Granular Casts None seen (NONE SEEN) Urine Waxy Casts None seen (NONE SEEN) Urine Red Blood Cell Casts None seen (NONE SEEN) Urine White Blood Cell Casts None seen (NONE SEEN) Urine Mucus None seen (None Seen) Urine Trichomonas None seen (NONE SEEN) Urine Yeast None (NONE SEEN) Urinalysis Comment Urine Culture Reflexed Not indicated White Blood Count 3.6th/mm3 (3.8-10.1) Red Blood Count 3.43mil/mm3 (3.90-5.20) Hemoglobin 10.8g/dL (12.0-15.6) Hematocrit 31.9% (35.0-46.0) Mean Corpuscular Volume 93.0fL (81-100) Mean Corpuscular Hemoglobin 31.5pg (27.0-35.0) Mean Corpuscular Hemoglobin Concent 33.9% (32.0-37.0) Red Cell Distribution Width 11.9% (12.3-15.4) Platelet Count 221bil/L (150-400) Neutrophils (%) (Auto) 47.8% (40-74) Lymphocytes (%) (Auto) 39.6% (14-46) Monocytes (%) (Auto) 10.2% (4-12) Eosinophils (%) (Auto) 1.6% (0-5) Basophils (%) (Auto) 0.8% (0-3) Sodium Level 140mEq/L (134-144) Potassium Level 4.5mEq/L (3.5-5.2) Chloride Level 109mEq/L (97-108) Carbon Dioxide Level 20mmol/L (18-29) Blood Urea Nitrogen 10mg/dL (8-27) Creatinine 0.45mg/dL (0.57-1.00) Estimat Glomerular Filtration Rate 188mL/min (>59) Glucose Level 94mg/dL (60-99) Calcium Level 8.5mg/dL (8.5-10.1) Magnesium Level 2.3mg/dL (1.6-2.6) Total Bilirubin 0.4mg/dL (0.0-1.2) Aspartate Amino Transf (AST/SGOT) 20U/L (0-50) Alanine Aminotransferase (ALT/SGPT) 11U/L (0-32) Alkaline Phosphatase 59U/L (25-165) Troponin T 0.010ug/L (0.0-0.011) Total Protein 6.4g/dL (6.4-8.4) Albumin 3.2g/dL (3.4-5.0) Discharge Medications Discharge Medications Fish Oil/Dha/Epa (Fish Oil 1,200 mg Fish Oil) 1 Each Capsule 1 EACH PO DAILY ( Reported) Pantoprazole (Protonix) 20 Mg Tablet 20 MG PO BID Prescribed by: DELROY PAYNE MD Valsartan (Valsartan) 80 Mg Tablet 80 MG PO DAILY (Reported) As needed Acetaminophen (Acetaminophen) 325 Mg Tablet 650 MG PO Q4H PRN PRN For Fever ( Reported) Gluc/Melquiades-MSM#1/Vit C/Giovanni/Bor (Blnjfdt-Jqxjb-EDO Complex Cplt) 1 Each Tablet 1 EACH PO DAILY PRN PRN JOINT PAIN (Reported) Followup Plan Disposition: Home Discharge Diet: Heart Healthy Discharge Activity: Limited until seen by PCP Patient Instructions You were hospitalized due to chest pain > EKg and cardiac enzymes negative for heart attack. Pain may be due to acid reflux.Please take protonix as prescribed. Please follow up with Dr Allison in 1 week . Follow-up Provider: Anh Allison MD Follow-up with PCP in: 1 week copies to: Anh Allison MD, Melaku MD Nov 24, 2016 13:46
--- NOTE | 2016-11-24 14:14 | NUR ---
ALEX explained to pt and her daughter who is at bedside using the Mandarin production support consultant IPAD. All questions answered.
--- NOTE | 2016-11-24 15:18 | NUR ---
Discharge Patient left floor at 1505 via wheelchair to be driven home by family. All discharge instructions discussed with patient and family using dip guider stoves and family took notes. Instructed to take all home medications tomorrow. IV d/c'd intact. All belongings left with patient.
== END 2016-11-24 15:02 | disposition home or self-care (01) ==
LOC: EDBD 15:50 → EDSEX 15:50 → SED 15:50 → INTOOBSV 18:15 → MOC 18:15
PROVIDERS: ADMIT Internal Medicine; ATTEND Internal Medicine
DX: R07.9 Chest pain, unspecified (principal); K21.9 Gastro-esophageal reflux disease without esophagitis; I10 Essential (primary) hypertension; D53.9 Nutritional anemia, unspecified; R33.9 Retention of urine, unspecified; E78.5 Hyperlipidemia, unspecified; F41.9 Anxiety disorder, unspecified; E87.1 Hypo-osmolality and hyponatremia; E83.42 Hypomagnesemia; E83.51 Hypocalcemia; G20 Parkinson's disease; R32 Unspecified urinary incontinence; M17.11 Unilateral primary osteoarthritis, right knee
CPT/HCPCS: 36415; 71010; 80053; 80061; 81000; 83735; 84443; 84484; 85025; 93005; 96374; 99285; G0378; J1644; J7030

== ENCOUNTER 2016-11-26 19:35 | Inpatient (IN) | payer MEDICARE, MEDICAID ==
[~2016-11-26] VITALS: Ht 147.3 cm; Wt 53.4 kg
[~2016-11-26 19:35] MED LIST changes: +FISH1CAP15 PO; +GLUC-91 PO; -OMEG500C3 PO; -OSLT75C PO; +PANT20T PO; +VALS80TA25 PO
[2016-11-26 19:49] VITALS: BP 220/100; PULSE 83; RESP 16; O2SAT 100
--- NOTE | 2016-11-26 20:20 | ED.REPORT ---
HPI-General Illness Date of Service Nov 26, 2016 ED Provider: Reese Goncalves MD The patient is an 89 year old female with a medical history including Parkinson' s syndrome, hypertension, and GERD who presents to the ED accompanied by her family with diffuse abdominal pain onset 2-3 hours ago. The patient is unable to characterize the quality of her pain. Associated symptoms include abdominal distention, dysuria, and four days of constipation. The patient denies nausea, vomiting, hematuria, chest pain, or other symptoms. She was discharged from the hospital two days ago after a one night stay with chest pain and hypertension. The patient speaks Mandarin and a remote international accountant was used. She is a poor historian due to pain and history is limited. Nursing Notes Stated Complaint: DIARRHEA Chief Complaint: Female Abdominal Pain Nursing Notes Reviewed: Yes Allergies: Coded Allergies: No Known Allergies (Unverified , 11/23/16) Scheduled Fish Oil/Dha/Epa (Fish Oil 1,200 mg Fish Oil) 1 Each Capsule 1 EACH PO DAILY Pantoprazole DR (Protonix) 20 Mg Tablet 20 MG PO BID Valsartan (Valsartan) 80 Mg Tablet 80 MG PO DAILY Scheduled PRN Acetaminophen (Acetaminophen) 325 Mg Tablet 650 MG PO Q4H PRN PRN For Fever Gluc/Melquiades-MSM#1/Vit C/Giovanni/Bor (Pkxsjfq-Qldeo-LQM Complex Cplt) 1 Each Tablet 1 EACH PO DAILY PRN PRN JOINT PAIN General Time Seen by MD: 20:18 Chief Complaint Abdominal pain Hx Obtained From: Patient, Other family... Unable to Obtain Hx: Patient condition (In pain) Arrived By: Walk-in Sudden in Onset?: No Onset Occurred: 1 - 4 hours ago Symptom Duration: Since onset Location: : Abdomen Quality: Painful Severity: Current: Moderate Severity: Maximum: Moderate Pertinent Negative: Relieved by nothing Recent Healthcare: Recent doctor visit, Recent hospitalization Past Medical History Past Medical History Notes: PCP: Dr. Allison Admitted 04/05/2015 for headache, lightheadedness, hypertension MRI/MRA brain April 10 negative acute disease Echocardiogram March 2015 EF of 6065% Past Medical History Parkinson's Syndrome Denies CA. Arthritis, R knee GERD Pneumonia Hypertension Dyslipidemia Anemia Urinary incontinence Reports: Hyperlipidemia, Hypertension Reports: Urinary tract infection Past Surgical History None reported Smoking History Never Smoker Social History Alcohol Use: Denies alcohol use Drug Use: Denies drug use Other Social History: Good social support, Local resident Occupation lives with family 06/13/2016 Ambulatory Status Independent Review of Systems Unable to Obtain ROS Patient condition (Patient in severe pain and language barrier despite manager transfusion, not answering questions directly) Physical Exam Constitutional: Well-developed, well-nourished. Appears uncomfortable. Writhing in pain. Not diaphoretic. Head: Normocephalic and atraumatic. Mouth/Throat: Oropharynx is clear and moist. No oropharyngeal exudate. Eyes: EOM are normal. Pupils are equal, round, and reactive to light. Neck: Supple, no tracheal deviation. Cardiovascular: Normal rate, regular rhythm. Equal and intact distal pulses throughout. Pulmonary/Chest: Effort normal and breath sounds normal. No respiratory distress. Abdominal: Soft. Mild abdominal distension. There is no ecchymosis. Abdomen is diffusely tender to palpation. There is no rebound or guarding. Bowel sounds present. Soft stool in rectal vault per RN. Musculoskeletal: Range of motion grossly intact, moving all four extremities. No edema or tenderness appreciated. Neurological: AOx3. Grossly nonfocal exam. Strength and sensation intact and equal to bilateral upper and lower extremities. Skin: Warm and dry, no rashes or pallor appreciated. Psychiatric: Difficult to assess secondary to patient condition, cooperation with exam, and language barrier. Vital Signs Vital Signs Date Time Temp Pulse Resp B/P Pulse Ox O2 Delivery O2 Flow Rate FiO2 11/26/16 23:08 36.8 72 22 97/57 100 11/26/16 20:35 89 103/70 100 Room Air 11/26/16 19:49 36.4 83 16 220/100 100 Room Air Initial VS: Reviewed Interpretation & Diagnostics Lab Results Interpretation Result Diagram: 11/26/16210911/26/162109 Test 11/26/16 21:10 11/26/16 22:03 11/26/16 22:10 White Blood Count 8.1th/mm3 (3.8-10.1) Red Blood Count 4.05mil/mm3 (3.90-5.20) Hemoglobin 12.9g/dL (12.0-15.6) Hematocrit 36.7% (35.0-46.0) Mean Corpuscular Volume 90.6fL (81-100) Mean Corpuscular Hemoglobin 31.9pg (27.0-35.0) Mean Corpuscular Hemoglobin Concent 35.1% (32.0-37.0) Red Cell Distribution Width 11.5% (12.3-15.4) Platelet Count 249bil/L (150-400) Neutrophils (%) (Auto) 69.0% (40-74) Lymphocytes (%) (Auto) 25.6% (14-46) Monocytes (%) (Auto) 3.9% (4-12) Eosinophils (%) (Auto) 1.2% (0-5) Basophils (%) (Auto) 0.2% (0-3) Prothrombin Time 10.0sec (8.1-12.5) Prothromb Time International Ratio 0.94ratio Sodium Level 121mEq/L (134-144) Potassium Level 3.8mEq/L (3.5-5.2) Chloride Level 85mEq/L (97-108) Carbon Dioxide Level 17mmol/L (18-29) Blood Urea Nitrogen 14mg/dL (8-27) Creatinine 0.64mg/dL (0.57-1.00) Estimat Glomerular Filtration Rate 125mL/min (>59) Glucose Level 129mg/dL (60-99) Calcium Level 9.2mg/dL (8.5-10.1) Magnesium Level 1.7mg/dL (1.6-2.6) Total Bilirubin 0.5mg/dL (0.0-1.2) Aspartate Amino Transf (AST/SGOT) 30U/L (0-50) Alanine Aminotransferase (ALT/SGPT) 17U/L (0-32) Alkaline Phosphatase 83U/L (25-165) Total Protein 8.7g/dL (6.4-8.4) Albumin 4.3g/dL (3.4-5.0) Lipase 79U/L (13-60) Urine Color Straw (YELLOW) Urine Appearance Clear (CLEAR,HAZY) Urine pH 7.0 (5.0-8.0) Urine Specific [place] 1.010 (1.003-1.035) Urine Protein Negativemg/dL (NEG,TRACE) Urine Glucose (UA) Negativemg/dL (NEGATIVE) Urine Ketones Tracemg/dL (NEGATIVE) Urine Occult Blood Moderate (NEGATIVE) Urine Nitrite Negative (NEGATIVE) Urine Bilirubin Negative (NEGATIVE) Urine Urobilinogen Normalmg/dL (NORMAL) Urine Leukocyte Esterase Negative (NEGATIVE) Urine RBC 11-50/hpf (0-2) Urine WBC 0-5/hpf (0-5) Urine Epithelial Cells Occasional/hpf (NONE-MOD) Urine Crystals None seen (NONE SEEN) Urine Bacteria None/hpf (NONE-FEW) Urine Hyaline Casts None/lpf (NONE) Urine Granular Casts None seen (NONE SEEN) Urine Waxy Casts None seen (NONE SEEN) Urine Red Blood Cell Casts None seen (NONE SEEN) Urine White Blood Cell Casts None seen (NONE SEEN) Urine Mucus None seen (None Seen) Urine Trichomonas None seen (NONE SEEN) Urine Yeast None (NONE SEEN) Urine Culture Reflexed Not indicated Lactic Acid Level 2.1mmol/L (0.4-2.0) CT Abd / Pelvis Interpretation IMPRESSION: Fecal impaction associated with proctitis. Nonspecific hypodense hepatic lesions. These could represent benign cysts/hemangiomas. Malignancy not excluded and followup is recommended. Tiny probable benign bilateral renal cysts. Non-emergent incidental findings as noted. Report transmitted to the ED by radiologist Louis Rivera M.D. at 11/26/2016 - 11:14:29 PM PDT Study type: Abdominal CT IV contrast Interpretation / Wet Read by: Interpret - Radiologist Re-Eval/Medical Decision Med Decision/Clinical Course In summary, 89-year-old female presenting to the ED for evaluation of severe abdominal pain in the setting of constipation. Patient is uncomfortable appearing and due to both her condition and language barrier, difficult to obtain a meaningful history. Given this, combined with her severe tenderness and concerning exam, decision made to perform a CT scan of her abdomen. Findings as per above, reviewed. Discussed with the family. Enema performed in the ED with only minimal improvement clinically. Of note, patient is currently hyponatremic however she has had this in the past. Lactic acid 2.1. Plan admission for further evaluation, management, bowel regimen, and pain control. Source of Hx: Old records Time of Eval: 23:56 Patient Status: Condition improved Re-Evaluation/Progress Note: Patient rechecked. She is still writhing in pain. Discussed with patient and her family CT and lab results, diagnosis, and plan for admit. Patient agrees with plan for care and all questions were addressed. Consultation : Referral / Consult Name: Vinicio Melendrez MD Consulted With: Hospitalist Call Returned at: 00:05 Agricultural Extension Educator: Agrees with eval, Agrees with plan, Accepts admit Counseled Regarding: Diagnosis, Lab results, Need for admission Discharge & Departure Primary Impression: Proctitis Additional Impressions: Fecal impaction Intractable pain Disposition: ADMITTED TO HOSPITAL Discharge Condition All VS Reviewed: Yes Condition: Improved Referrals: Anh Allison MD (PCP) Scribe Attestation Portions of this note were transcribed by Wanda Riley. I, Dr. Goncalves, personally performed the history, physical exam, and medical decision-making; I reviewed and confirmed the accuracy of the information in the transcribed note. Signed by: Durga Garcia, 11/27/2016, 00:15 copies to: Anh Allison MD, William B MD Nov 26, 2016 20:20 WANDA RILEY Nov 26, 2016 20:25
[2016-11-26 20:35] VITALS: BP 103/70; PULSE 89; O2SAT 100
[2016-11-26] MEDS ORDERED: 0.9% Sodium Chloride 1,000 ML IV ONE (20:43)
[2016-11-26] MEDS ORDERED: Ondansetron 2 mg/mL 2 mL Inj IVPUSH ONE (20:45)
[2016-11-26] MEDS: HYDROmorphone 0.5 mg/0.5 mL iSecure Syringe IVPUSH PRN ×2 (21:14→23:09)
[2016-11-26 21:18] LABS: BASOPHILS % (AUTO) 0.2 % (0-3); EOSINOPHILS % (AUTO) 1.2 % (0-5); MONOCYTES % (AUTO) 3.9 % (4-12); Mean Corpuscular Hemoglobin 31.9 pg (27.0-35.0); Mean Corpuscular Volume 90.6 fL (81-100); Platelet Count 249 bil/L (150-400)
[2016-11-26 21:33] LABS: INR 0.94 ratio
[2016-11-26 21:40] LABS: Magnesium 1.7 mg/dL (1.6-2.6)
[2016-11-26 22:34] LABS: APPEARANCE,URINE CLEAR (CLEAR,HAZY); COLOR,URINE STRAW (YELLOW); OCCULT BLOOD,URINE MODERATE (NEGATIVE); UROBILINOGEN,URINE NORMAL (NORMAL)
[2016-11-26 23:08] VITALS: BP 97/57; PULSE 72; RESP 22; O2SAT 100
[2016-11-26 23:42] VITALS: BP 122/60; PULSE 115; RESP 22; O2SAT 97
[2016-11-27] VITALS (9 sets, daily range): BP systolic 115–157; BP diastolic 56–98; PULSE 64–78; RESP 16–20; O2SAT 95–100
[2016-11-27] MEDS ORDERED: Ondansetron 2 mg/mL 2 mL Inj IVPUSH PRN (00:20)
[2016-11-27] MEDS ORDERED: PEG/Electrolytes 4,000 mL Solution PO ONE (00:20)
[2016-11-27] MEDS ORDERED: Alum-Mag Hydrox-Simeth 30 mL Suspension PO PRN (00:20)
[2016-11-27] MEDS: Heparin 5,000 Unit/mL Inj SUBQ SCH ×3 (01:57→16:47)
--- NOTE | 2016-11-27 03:17 | PCM.HPMED ---
Subjective Date of Service Nov 27, 2016 Primary Provider: Admitting Physician: Vinicio Melendrez MD Primary Care Physician: Anh Allison MD Attending Physician: Vinicio Melendrez MD Admit Status: From the Emergency Department Chief Complaint: Abdominal pain History of Present Illness: Patient is an 89-year-old female with past medical history including Parkinson' s syndrome, hypertension, and GERDwho presents with acute lower abdominal pain described as diffuse and colicky in nature and beginning rapidly approximately 2 -3 hours ago. The patient is of [place] descent speaking Mandarin only using her adult daughter as a instrument lens grinder. The daughter reiterates that the patient has not had a bowel movement since Saturday when she was last seen in the hospital. The patient is apparently typically fairly regular with her bowel movements. The patient denies symptoms including fever or chills, chest pain, shortness of breath, nausea, vomiting, hematuria, unusual rashes, or unusual bruising or bleeding. She is having some difficulty with urination. The patient denies taking any new medications currently. Review of Systems: A comprehensive review of systems was obtained and all are negative except for what is included in the history of present illness. Allergies Coded Allergies: No Known Allergies (Unverified , 11/23/16) Home Medications Acetaminophen (Acetaminophen) 325 Mg Tablet 650 MG PO Q4H PRN PRN For Fever Gluc/Melquiades-MSM#1/Vit C/Giovanni/Bor (Njddxqp-Sojej-DYB Complex Cplt) 1 Each Tablet 1 EACH PO DAILY PRN PRN JOINT PAIN Fish Oil/Dha/Epa (Fish Oil 1,200 mg Fish Oil) 1 Each Capsule 1 EACH PO DAILY Pantoprazole DR (Protonix) 20 Mg Tablet 20 MG PO BID Valsartan (Valsartan) 80 Mg Tablet 80 MG PO DAILY Per outpatient [facility] records: Diovan Mupirocin 2% ointment PMH Parkinson's Syndrome Arthritis, R knee GERD Hyperlipidemia Hypertension chronic Urinary tract infection Per [facility] Records: Pneumonia Hypertension Dyslipidemia Anemia Urinary incontinence Surgical History none Family History No reported family history of any disease process Social History Hx Alcohol Use: No Hx Substance Use: No Hx Tobacco Use: No Smoking Status: Never Smoker Living Arrangement: with Family Exam Vital Signs Vital Sign - Last Date Time Temp Pulse Resp B/P Pulse Ox O2 Delivery O2 Flow Rate FiO2 11/27/16 02:23 36.8 75 16 157/98 100 Room Air Intake and Output 11/26/16 11/26/16 11/27/16 Cumulative From/Thru 15:00 23:00 07:00 11/26/16 19:49 - 11/27/16 02:23 Intake Total 1000 ml 1000 ml Balance 1000 ml 1000 ml Intake IV Total 1000 ml 1000 ml Exam General: Awake alert lying in hospital bed in moderate acute distress, well- developed, well-nourished, multiple family members at bedside Eyes: Pupils equal, round, and reactive to light and accommodation. EOMI, Anicteric sclerae, moist conjunctivae, and no lid lag. HENT: Normocephalic, atraumatic. External ears without defect. Oropharynx free of erythema and cobble stoning with moist mucosa. Neck: Supple with full range of motion. No jugular venous distension. No bruits. No lymphadenopathy or thyromegaly. Cardiovascular: Regular rate and rhythm with no murmurs, rubs, or gallops appreciated Pulmonary: Clear to auscultation bilaterally with no crackles, wheezes, or rhonchi. Normal respiratory effort with no use of accessory muscles. Abdomen: Bowel tones present. tender to palpation 4 quadrants worse in lower quadrants. distended and tense in lower abdomen Extremities: No clubbing, cyanosis, mild lower extremity edema to ankles Skin: Normal temperature, turgor, and texture Neurological: Cranial nerves grossly intact. Psychiatric: Normal mood and affect. Hard of hearing, responds appropriately to questions. : no arguello in place Lab and Diagnostics Result Diagram: 11/26/16210911/26/162109 X-Rays, CTs and MRIs CT Abd / Pelvis IMPRESSION: Fecal impaction associated with proctitis. Nonspecific hypodense hepatic lesions. These could represent benign cysts/hemangiomas. Malignancy not excluded and followup is recommended. Tiny probable benign bilateral renal cysts. Non-emergent incidental findings as noted. Report transmitted to the ED by radiologist Louis Rivera M.D. at 11/26/2016 - 11:14:29 PM PDT Assessment & Plan Ms. Foley is a 89-year-old female with past medical history of Parkinson's, GERD , hypertension, hyperlipidemia, and electrolyte disturbances. # Severe constipation - Noted on CT scan described above - The patient received 2 enema treatments in the ED - The patient was explained through her adult daughter translating that she will need to drink several glasses of GoLYTELY at minimum and she agreed to attempt - Senna and Dulcolax available for stimulants - Nursing staff made aware to encourage drinking of GoLYTELY first for osmotic effects prior to initiating stimulating medications such as senna and Dulcolax - Tylenol for pain and to avoid constipating side effects of narcotics # Anion gap metabolic acidosis secondary to lactic acidosis - Anion gap calculated at 19 with bicarbonate of 17 and lactic acid of 2.1 - UA negative for infection with negative nitrites and negative leukocyte esterase negative WBCs negative bacteria - Procalcitonin 0.04, this will be repeated given the overnight increase in WBC - Lactic acid trending - WBC count increased to 14.8 from 8.1 with lactic acidosis increased risk of infection - Given patient may have intrinsic kidney injury described below, as well as recent IV contrast, must avoid further nephrotoxic insults, if procalcitonin increases consider likely sources of infection and begin antibiotic combination Cefepime IV and Metronidazole IV. # Hematuria with history of urinary retention - CT scans fails to reveal nephrolithiasis explaining gross hematuria - Nursing report of need for catheterization due to urinary retention as possible cause of hematuria - Post void residual bladder scan ordered PRN with overnight nurse - Urine Sodium and Creatinine ordered for FENA calculation at 3.4% consistent with intrinsic likely ATN - Renal US scan # Chronic Hyponatremia - Sodium of 121 at admission with chloride of 85 making likely secondary to nutritional depletion - Record review shows hyponatremia dating back to 2009 - Gentle hydration with initial 1000mL given in ED - Urine Sodium and Creatinine ordered for FENA calculation at 3.4% consistent with intrinsic likely ATN - Continue to monitor # Significant Labile Blood Pressure - Blood pressures ranging from SBP of 220 to 97 - Likely secondary to pain causing hypertension and dehydration causing hypotension - Gentle hydration with initial 1000mL given in ED - Continue home Valsartan when normalizes DVT prophylaxis: Heparin 5000 3 times a day GI prophylaxis: famotidine CODE STATUS full Patient Status: Patient was admitted under observation status with expected length of stay less than two midnights due to severity of presenting symptoms, risk of adverse event, and complexity of treatment plan. Pain Evaluation: Pain not Controlled (unable to give opiates due to constipating side effects) GI Prophylaxis: H2 bari VTE Prophylaxis Indicated: Meets Criteria for Anticoag Therapy VTE Prophylaxis: Sub-Q Heparin (Unfractionated) VTE Mechanical Devices: Intermittant Pneumatic CD Resuscitation Status: CPR: Attempt Resuscitation Attending Statement The patient was seen and examined together with Dr. Person on 11/27 and I agree with the history, exam and plan as outlined in the note above. Erik Kowalski DO Nov 27, 2016 03:16 Vinicoi Melendrez MD Nov 27, 2016 04:07
[2016-11-27 05:49] LABS: BASOPHILS % (AUTO) 0.1 % (0-3); EOSINOPHILS % (AUTO) 0 % (0-5); MONOCYTES % (AUTO) 3.8 % (4-12); Mean Corpuscular Hemoglobin 30.8 pg (27.0-35.0); Mean Corpuscular Volume 91.4 fL (81-100); NEUTROPHILS % (AUTO) 91.7 % (40-74); Platelet Count 237 bil/L (150-400)
--- NOTE | 2016-11-27 08:41 | DRSVH ---
PROCEDURE: CT ABDOMEN AND PELVIS WITH CONTRAST ([id number]) INDICATIONS: adominal pain, ?constipation vs SBO TECHNIQUE: After the administration of intravenous contrast, 5 mm thick sections acquired from the diaphragm to the symphysis. 5 mm coronal and sagittal reformats were acquired. For radiation dose reduction, the following was used: automated exposure control, adjustment of mA and/or kV according to patient [place]. COMPARISON: [facility], CT, CT ABD PELVIS W CON, 10/27/2015, 19:08. formerly [facility], CT, CT ABD PELVIS W CON, 06/13/2016, 17:30. FINDINGS: Image quality: Excellent. ABDOMEN: Lung bases: Bilateral scattered atelectasis and scarring. Heart is enlarged Solid organs: Multiple hypodense lesions in the liver, measuring up to 1.1 cm however some of these a re too small to characterize definitively and technically indeterminate. No definite interval change since 10/27/15. Gallbladder unremarkable. Biliary tree within normal limits. Pancreas and spleen gross ly unremarkable. Adrenal glands unremarkable. There are small presumed bilateral renal cysts, less th an 5 mm and these could also represent small cortical scarring/infarcts. No hydronephrosis. Ureters a ppear decompressed Peritoneum and bowel: No free fluid, free air or evidence of bowel obstruction. There is moderate sto ol, and a large amount of stool seen within the rectal vault raising possibility of fecal impaction. Appendix not visualized. There is distal rectal wall thickening with possible adjacent fat stranding Nodes and vessels: No retroperitoneal or mesenteric adenopathy by size criteria. Aorta and inferior vena cava are normal in size. Miscellaneous: No ventral hernias. PELVIS: Genitourinary: Bladder wall thickness is normal. Miscellaneous: No inguinal hernias or adenopathy. Bones: No suspicious bony lesions. No vertebral body compression fractures. Discogenic changes and diffuse osteopenia. IMPRESSION: 1. Possible distal rectal wall thickening suggestive of proctitis. Please correlate to clinical exam findings. 2. Large amount of stool, especially within the rectal vault raising possibility of fecal impaction. 3. Grossly unchanged hypodense hepatic lesions therefore presumably small cysts/hemangiomas although technically indeterminate and at clinical discretion, continued surveillance with ultrasound or CT co uld be performed. 4. Presumed bilateral renal cysts, too small to characterize definitively. 5. No specific evidence of obstruction Dictated by: Ki Woods M.D. on 11/27/2016 at 8:24 Approved by: Ki Woods M.D. on 11/27/2016 at 8:39
--- NOTE | 2016-11-27 09:51 | DRSVH ---
PROCEDURE: US RENAL SONOGRAM INDICATIONS: hematuria TECHNIQUE: Real-time scanning was performed of the kidneys and bladder, with image documentation. COMPARISON: [facility], CT, CT ABD PELVIS W CON, 11/26/2016, 22:42. FINDINGS: Kidneys: Right kidney measures 9 cm long; left kidney measures 10.6 cm long. Right renal cortical t hickness is 1.3 cm; left renal cortical thickness is 1.3 cm. Renal cortical echotexture is normal. No hydronephrosis. There is a linear non-shadowing echogenic focus within the inferior pole of the r ight kidney measuring up to 6 mm. Within the superior pole of the left kidney there are a few cluste red linear echogenic foci without posterior acoustic shadowing. Bladder: There is a Baker catheter in place within a decompressed urinary bladder. Miscellaneous: No free pelvic fluid. IMPRESSION: 1. Bilateral linear non-shadowing echogenic foci demonstrated in the kidneys. No discrete correspon ding renal stones are seen on the recent CT. The findings are nonspecific and may reflect sonographi c artifact. 2. No evidence of hydronephrosis. Dictated by: Malcolm Velazquez M.D. on 11/27/2016 at 9:40 Approved by: Malcolm Velazquez M.D. on 11/27/2016 at 9:49
[2016-11-27] MEDS: 0.9% Sodium Chloride 1,000 ML IV SCH ×2 (10:35→20:46)
[2016-11-27 13:41] LABS: BASOPHILS % (AUTO) 0.1 % (0-3); EOSINOPHILS % (AUTO) 0 % (0-5); MONOCYTES % (AUTO) 4.1 % (4-12); Mean Corpuscular Hemoglobin 31.4 pg (27.0-35.0); Mean Corpuscular Volume 91.1 fL (81-100); NEUTROPHILS % (AUTO) 86.4 % (40-74); Platelet Count 206 bil/L (150-400)
[2016-11-28 00:17] VITALS: BP 124/61; PULSE 77; RESP 18; O2SAT 96
[2016-11-28] MEDS: Heparin 5,000 Unit/mL Inj SUBQ SCH ×3 (00:23→16:54)
[2016-11-28 04:57] VITALS: BP 157/70; PULSE 54; RESP 18; O2SAT 98
[2016-11-28 06:05] LABS: BASOPHILS % (AUTO) 0.2 % (0-3); EOSINOPHILS % (AUTO) 0.2 % (0-5); MONOCYTES % (AUTO) 6.2 % (4-12); Mean Corpuscular Hemoglobin 31.4 pg (27.0-35.0); Mean Corpuscular Volume 93.5 fL (81-100); NEUTROPHILS % (AUTO) 69.9 % (40-74); Platelet Count 209 bil/L (150-400)
[2016-11-28] MEDS: 0.9% Sodium Chloride 1,000 ML IV SCH ×3 (06:27→17:59)
[2016-11-28 06:59] LABS: Magnesium 1.9 mg/dL (1.6-2.6); Phosphorus 2.4 mg/dL (2.5-4.9)
[2016-11-28] MEDS ORDERED: Potassium Chloride 20 mEq SR Tablet PO ONE (07:20)
[2016-11-28] MEDS ORDERED: Docusate Sodium PO (08:45)
[2016-11-28] MEDS ORDERED: PSYL798P2 PO (08:45)
[2016-11-28] MEDS ORDERED: SENN-133 PO (08:45)
--- NOTE | 2016-11-28 08:51 | PCM.DIMED ---
Discharge Instructions Date of Service Nov 28, 2016 Dates of Hospitalization Nov 27, 2016 at 01:02 Discharge Diagnosis Discharge Diagnosis Medicine for constipation: Metamucil powder mixing in water, three times per day Colace, stool softner, three time per day Senna once before bedtimes You can adjust these medicine based on your stools, If it's too loose, decrease the frequency or stop it. Patient Instructions Patient Instructions You were hospitalized with severe constipation. Your symptoms were greatly improved with supportive tx. Please note that you have to continue bowel regimen as above to prevent severe constipation Follow-up plan Please follow up with your primary doctor in 2weeks Follow-up Provider: Anh Allison MD Follow-up with PCP in: 2 weeks Josselin Gonzáles MD Nov 28, 2016 08:51
[2016-11-28 09:03] VITALS: BP 122/70; PULSE 58; RESP 18; O2SAT 93
[2016-11-28 10:33] VITALS: PULSE 66
[2016-11-28 12:57] VITALS: BP 167/84; PULSE 58; RESP 18; O2SAT 96
[2016-11-28 19:06] LABS: APPEARANCE,URINE CLEAR (CLEAR,HAZY); COLOR,URINE YELLOW (YELLOW); OCCULT BLOOD,URINE LARGE (NEGATIVE); UROBILINOGEN,URINE NORMAL (NORMAL)
[2016-11-28 20:32] VITALS: BP 161/71; PULSE 69; RESP 18; O2SAT 97
[2016-11-29] VITALS (7 sets, daily range): BP systolic 161–210; BP diastolic 70–97; PULSE 63–73; RESP 18–20; O2SAT 97–100
[2016-11-29] MEDS: Heparin 5,000 Unit/mL Inj SUBQ SCH ×3 (00:34→16:00)
[2016-11-29] MEDS: 0.9% Sodium Chloride 1,000 ML IV SCH (05:12)
--- NOTE | 2016-11-29 07:29 | PCM.PNMED ---
Subjective Date of Service Nov 28, 2016 Subjective pt made multiple soft BM but retained urine, dc was delayed pt urinated small amount, denied any complaints Exam Vital Signs Vital Sign - Last Date Time Temp Pulse Resp B/P Pulse Ox O2 Delivery O2 Flow Rate FiO2 11/29/16 05:14 36.6 63 18 166/71 97 Room Air Intake and Output 11/28/16 11/28/16 11/29/16 Cumulative From/Thru 15:00 23:00 07:00 11/26/16 19:49 - 11/29/16 05:54 Intake Total 1668 ml 1790 ml 7888 ml Output Total 1075 ml 2605 ml 7080 ml Balance 593 ml -815 ml 808 ml Intake Oral 556 ml 800 ml 2956 ml IV Total 1112 ml 990 ml 4932 ml Output Urine Total 1075 ml 2605 ml 7080 ml # Bowel Movements 0 9 Exam NAD, comfortable MMM, no JVD RRR, nl s1 s2 no mrg CTAB, no w,c S,ND,NT,BS+ war, no edema IVs and Medications Medications Reviewed: Medications were reviewed in detail Lab and Diagnostics Result Diagram: 11/28/16 0545 11/28/16 0545 X-Rays, CTs and MRIs CT Abd / Pelvis IMPRESSION: Fecal impaction associated with proctitis. Nonspecific hypodense hepatic lesions. These could represent benign cysts/hemangiomas. Malignancy not excluded and followup is recommended. Tiny probable benign bilateral renal cysts. Non-emergent incidental findings as noted. Report transmitted to the ED by radiologist Louis Rivera M.D. at 11/26/2016 - 11:14:29 PM PDT Assessment & Plan Ms. Foley is a 89-year-old female with past medical history of Parkinson's, GERD , hypertension, hyperlipidemia, and electrolyte disturbances. # Severe constipation. Noted on CT scan described above. The patient received 2 enema treatments in the ED s/p GoLYTELY, had good BM today, -continue Senna colace on d/c # Anion gap metabolic acidosis secondary to lactic acidosis - Anion gap calculated at 19 with bicarbonate of 17 and lactic acid of 2.1 - UA negative for infection with negative nitrites and negative leukocyte esterase negative WBCs negative bacteria - Procalcitonin 0.04, this will be repeated given the overnight increase in WBC - Lactic acid trending - WBC count increased to 14.8 from 8.1 with lactic acidosis increased risk of infection - Given patient may have intrinsic kidney injury described below, as well as recent IV contrast, must avoid further nephrotoxic insults, if procalcitonin increases consider likely sources of infection and begin antibiotic combination Cefepime IV and Metronidazole IV. # Hematuria with history of urinary retention, CT scans fails to reveal nephrolithiasis explaining gross hematuria - continue in/out cath q4h PVR>250cc - awaits UA # Chronic Hyponatremia - Sodium of 121 at admission with chloride of 85 making likely secondary to nutritional depletion - Record review shows hyponatremia dating back to 2009 - Gentle hydration with initial 1000mL given in ED - Urine Sodium and Creatinine ordered for FENA calculation at 3.4% consistent with intrinsic likely ATN - Continue to monitor # Significant Labile Blood Pressure - Blood pressures ranging from SBP of 220 to 97 - Likely secondary to pain causing hypertension and dehydration causing hypotension - Gentle hydration with initial 1000mL given in ED - Continue home Valsartan when normalizes DVT prophylaxis: Heparin 5000 3 times a day GI prophylaxis: famotidine CODE STATUS full Patient Status: delayed as pt retained urine, This is the progress note in 11/28 GI Prophylaxis: H2 bari VTE Prophylaxis: Sub-Q Heparin (Unfractionated) VTE Mechanical Devices: Intermittant Pneumatic CD Resuscitation Status: CPR: Attempt Resuscitation Josselin Gonzáles MD Nov 29, 2016 07:29
[2016-11-29 08:25] LABS: BASOPHILS % (AUTO) 0.2 % (0-3); EOSINOPHILS % (AUTO) 1.4 % (0-5); MONOCYTES % (AUTO) 6.2 % (4-12); Mean Corpuscular Hemoglobin 31.3 pg (27.0-35.0); Mean Corpuscular Volume 92.2 fL (81-100); NEUTROPHILS % (AUTO) 68.9 % (40-74); Platelet Count 225 bil/L (150-400)
[2016-11-29 08:49] LABS: Magnesium 1.9 mg/dL (1.6-2.6)
[2016-11-29] MEDS ORDERED: cefTRIAXone Inj 2,000 MG in Dextrose 5% Minibag Plus 50 ML IV ONE (09:10)
--- NOTE | 2016-11-29 10:17 | PCM.PNMED ---
Subjective Date of Service Nov 29, 2016 Subjective pt was bit agitated and hypertensive overnight, noted to have mild bleeding in the toilet, labs were better, afebrile, continue to have loose stools, c/o bladder fullness and pain with urination, UA to repeat today UA/UCX showed mixed armando Exam Vital Signs Vital Sign - Last Date Time Temp Pulse Resp B/P Pulse Ox O2 Delivery O2 Flow Rate FiO2 11/29/16 05:14 36.6 63 18 166/71 97 Room Air Intake and Output 11/28/16 11/28/16 11/29/16 Cumulative From/Thru 15:00 23:00 07:00 11/26/16 19:49 - 11/29/16 05:54 Intake Total 1668 ml 1790 ml 7888 ml Output Total 1075 ml 2605 ml 7080 ml Balance 593 ml -815 ml 808 ml Intake Oral 556 ml 800 ml 2956 ml IV Total 1112 ml 990 ml 4932 ml Output Urine Total 1075 ml 2605 ml 7080 ml # Bowel Movements 0 9 Exam NAD, comfortably laying down on the bed no JVD, MMM, no LAD RRR, nl s1, s2 no mrg CTAB, no w,c S,ND,NT,normoactive BS+ warm, no edema, pulses 2/2 IVs and Medications Medications Reviewed: Medications were reviewed in detail Lab and Diagnostics Result Diagram: 11/29/16 0801 11/29/16 0801 X-Rays, CTs and MRIs CT Abd / Pelvis IMPRESSION: Fecal impaction associated with proctitis. Nonspecific hypodense hepatic lesions. These could represent benign cysts/hemangiomas. Malignancy not excluded and followup is recommended. Tiny probable benign bilateral renal cysts. Non-emergent incidental findings as noted. Report transmitted to the ED by radiologist Louis Rivera M.D. at 11/26/2016 - 11:14:29 PM PDT Assessment & Plan Ms. Foley is a 89-year-old female with past medical history of Parkinson's, GERD , hypertension, hyperlipidemia, and electrolyte disturbances. # Severe constipation. Noted on CT scan described above. The patient received 2 enema treatments in the ED s/p GoLYTELY, had good BM today, -continue Senna colace on d/c # Anion gap metabolic acidosis secondary to lactic acidosis, Anion gap calculated at 19 with bicarbonate of 17 and lactic acid of 2.1. no signs of systemic infection, resolved with IVF #blood in the toilet, UA showed mild hematuria [id number], reportedly pt has hemorrhoid as well, which also could be the source. -h/h remained stable, not on AC, will monitor for now #Urinary retention, CT/renal US no hydro, bladder pathology. UCX showed mixed armando -clinically improved, pt can self-void now, continue in/out cath q6h PVR>250cc -awaits repeat UA, will give one dose of CTX given bladder sx # Chronic Hyponatremia, Na121 on admission, improved with IVF, likely GI fluid loss. #HTN, with Labile Blood Pressure, POA, likely due to being agitated, strained with constipation, urination difficulty. -s/p [id number] overnight, resumed home [id number] today -trends BP, if persistently >180s, will consider adding 2nd agent DVT prophylaxis: SCD GI prophylaxis: famotidine CODE STATUS full dispo: likely later today or tomorrow GI Prophylaxis: H2 bari VTE Prophylaxis: Sub-Q Heparin (Unfractionated) VTE Mechanical Devices: Intermittant Pneumatic CD Resuscitation Status: CPR: Attempt Resuscitation Time spent 35min Josselin Gonzáles MD Nov 29, 2016 10:17
[2016-11-29 12:23] LABS: APPEARANCE,URINE CLOUDY (CLEAR,HAZY); COLOR,URINE BLOODY (YELLOW); PH,URINE 6.5 (5.0-8.0)
[2016-11-29 12:24] LABS: OCCULT BLOOD,URINE LARGE (NEGATIVE); UROBILINOGEN,URINE NORMAL (NORMAL)
[2016-11-30] MEDS: Heparin 5,000 Unit/mL Inj SUBQ SCH ×2 (00:55→08:30)
[2016-11-30 05:52] VITALS: BP 163/71; PULSE 56; RESP 18; O2SAT 97
[2016-11-30 06:07] LABS: BASOPHILS % (AUTO) 0.2 % (0-3); EOSINOPHILS % (AUTO) 3.2 % (0-5); MONOCYTES % (AUTO) 6.8 % (4-12); Mean Corpuscular Hemoglobin 30.9 pg (27.0-35.0); Mean Corpuscular Volume 91.4 fL (81-100); NEUTROPHILS % (AUTO) 64.4 % (40-74); Platelet Count 221 bil/L (150-400)
[2016-11-30 06:54] LABS: Magnesium 1.7 mg/dL (1.6-2.6); Phosphorus 3.7 mg/dL (2.5-4.9)
[2016-11-30] MEDS ORDERED: cefTRIAXone Inj 2,000 MG in Dextrose 5% Minibag Plus 50 ML IV ONE (07:50)
[2016-11-30] MEDS ORDERED: Magnesium Sulf 2 Gm/50mL Water 2 GM in IV Premix 1 EACH IV ONE (07:50)
[2016-11-30] MEDS ORDERED: Potassium Chloride 20 mEq SR Tablet PO ONE (07:50)
[2016-11-30] MEDS ORDERED: CIPR500S3 PO (10:06)
[2016-11-30] MEDS ORDERED: ACET-2766 PO (10:07)
[2016-11-30 10:35] VITALS: BP 164/81; PULSE 66; RESP 18; O2SAT 99
--- NOTE | 2016-12-02 11:00 | PCM.DC.MED ---
Discharge Summary Date of Service Nov 30, 2016 Dates of Hospitalization Date of Hospital Admission Nov 27, 2016 at 01:02 Date of Discharge: Nov 30, 2016 Providers: Admitting Physician: Vinicio Melendrez MD Primary Care Physician: Anh Allison MD Attending Physician: Vinicio Melendrez MD Diagnosis at Time of Discharge Diagnosis at Time of Discharge Severe ileus cystitis with E.coli Anion gap metabolic acidosis secondary to lactic acidosis Mild hematochezia, likely due to undiagnosed hemorrhoid Hyponatremia, likely GI fluid loss, HTN, Procedures XRay, CTs & MRIs PROCEDURE: CT ABDOMEN AND PELVIS WITH CONTRAST ([id number]) INDICATIONS: adominal pain, ?constipation vs SBO TECHNIQUE: After the administration of intravenous contrast, 5 mm thick sections acquired from the diaphragm to the symphysis. 5 mm coronal and sagittal reformats were acquired. For radiation dose reduction, the following was used: automated exposure control, adjustment of mA and/or kV according to patient size. COMPARISON: [facility], CT, CT ABD PELVIS W CON, 10/27/2015, 19:08. [facility], CT, CT ABD PELVIS W CON, 06/13/2016, 17:30. FINDINGS: Image quality: Excellent. ABDOMEN: Lung bases: Bilateral scattered atelectasis and scarring. Heart is enlarged Solid organs: Multiple hypodense lesions in the liver, measuring up to 1.1 cm however some of these are too small to characterize definitively and technically indeterminate. No definite interval change since 10/27/15. Gallbladder unremarkable. Biliary tree within normal limits. Pancreas and spleen grossly unremarkable. Adrenal glands unremarkable. There are small presumed bilateral renal cysts, less than 5 mm and these could also represent small cortical scarring/infarcts. No hydronephrosis. Ureters appear decompressed Peritoneum and bowel: No free fluid, free air or evidence of bowel obstruction. There is moderate stool, and a large amount of stool seen within the rectal vault raising possibility of fecal impaction. Appendix not visualized. There is distal rectal wall thickening with possible adjacent fat stranding Nodes and vessels: No retroperitoneal or mesenteric adenopathy by size criteria. Aorta and inferior vena cava are normal in size. Miscellaneous: No ventral hernias. PELVIS: Genitourinary: Bladder wall thickness is normal. Miscellaneous: No inguinal hernias or adenopathy. Bones: No suspicious bony lesions. No vertebral body compression fractures. Discogenic changes and diffuse osteopenia. IMPRESSION: 1. Possible distal rectal wall thickening suggestive of proctitis. Please correlate to clinical exam findings. 2. Large amount of stool, especially within the rectal vault raising possibility of fecal impaction. 3. Grossly unchanged hypodense hepatic lesions therefore presumably small cysts/ hemangiomas although technically indeterminate and at clinical discretion, continued surveillance with ultrasound or CT could be performed. 4. Presumed bilateral renal cysts, too small to characterize definitively. 5. No specific evidence of obstruction Dictated by: Ki Woods M.D. on 11/27/2016 at 8:24 Approved by: Ki Woods M.D. on 11/27/2016 at 8:39 Brief History HPI obtained on 11/27 Patient is an 89-year-old female with past medical history including Parkinson' s syndrome, hypertension, and GERDwho presents with acute lower abdominal pain described as diffuse and colicky in nature and beginning rapidly approximately 2 -3 hours ago. The patient is of Pashto descent speaking Mandarin only using her adult daughter as a meat products demonstrator. The daughter reiterates that the patient has not had a bowel movement since Saturday when she was last seen in the hospital. The patient is apparently typically fairly regular with her bowel movements. The patient denies symptoms including fever or chills, chest pain, shortness of breath, nausea, vomiting, hematuria, unusual rashes, or unusual bruising or bleeding. She is having some difficulty with urination. The patient denies taking any new medications currently. Hospital Course Ms. Foley is a 89-year-old female with past medical history of Parkinson's, GERD , hypertension, hyperlipidemia, and electrolyte disturbances. # Severe ileus Patient was admitted with severe ileus, there was initial concern based on CAT scan with proctitis, mildly elevated lactate. However, with aggressive bowel regimen and PEG, symptoms were greatly resolved. Abdomen remained benign, did not require surgical evaluation. Patient was recommended to continue bowel regimen at home #Urinary tract infection with urinary frequency, dysuria, urinary retention. CT/renal US showed no hydro, pyelonephritis. Initial UCX showed mixed [place], repeat cultures showed Escherichia coli. Patient was given ceftriaxone for 2 days, switched to ciprofloxacin 100 mg twice a day until 5 days course. Patient also developed urinary patient required frequent straight cath, which eventually resolved as UTI clears up. #Anion gap metabolic acidosis secondary to lactic acidosis, resolved with IVF, abx #Mild hematochezia, likely due to undiagnosed hemorrhoid Patient's H&H remained stable throughout the hospitalization, bleeding is mild, more of a drooping with bowel movement. Patient was recommended to have sitz bath. follow up with PCP #Chronic Hyponatremia, likely GI fluid loss, resolved with IV fluid #HTN, blood pressure was not in target, maintained 160s throughout the hospitalization. Losartan 50 mg was continued. Exam Vital Signs (Last) Date Time Temp Pulse Resp B/P Pulse Ox O2 Delivery O2 Flow Rate FiO2 11/30/16 10:35 36.5 66 18 164/81 99 Room Air Exam NAD, comfortably laying down on the bed no JVD, MMM, no LAD RRR, nl s1, s2 no mrg CTAB, no w,c S,ND,NT,normoactive BS+ warm, no edema, pulses 2/2 Test 11/26/16 21:10 11/26/16 21:59 11/27/16 05:15 11/27/16 13:35 Prothrombin Time 10.0sec (8.1-12.5) Prothromb Time International Ratio 0.94ratio Lipase 79U/L (13-60) Urine Random Creatinine 14mg/dL (15-278) Urine Random Sodium 91mEq/L Total Creatine Kinase 63U/L (21-215) Procalcitonin 0.04ng/mL (0.00-0.08) Lactic Acid Level 2.2mmol/L (0.4-2.0) Test 11/28/16 18:38 11/29/16 11:47 11/30/16 04:56 Urine Culture Reflexed Indicated Urine Color Bloody (YELLOW) Urine Appearance Cloudy (CLEAR,HAZY) Urine pH 6.5 (5.0-8.0) Urine Specific [place] 1.010 (1.003-1.035) Urine Protein 30mg/dL (NEG,TRACE) Urine Glucose (UA) Negativemg/dL (NEGATIVE) Urine Ketones Negativemg/dL (NEGATIVE) Urine Occult Blood Large (NEGATIVE) Urine Nitrite Negative (NEGATIVE) Urine Bilirubin Negative (NEGATIVE) Urine Urobilinogen Normalmg/dL (NORMAL) Urine Leukocyte Esterase Large (NEGATIVE) Urine RBC >50/hpf (0-2) Urine WBC >50/hpf (0-5) Urine Epithelial Cells Occasional/hpf (NONE-MOD) Urine Crystals None seen (NONE SEEN) Urine Bacteria Many/hpf (NONE-FEW) Urine Hyaline Casts None/lpf (NONE) Urine Granular Casts None seen (NONE SEEN) Urine Waxy Casts None seen (NONE SEEN) Urine Red Blood Cell Casts None seen (NONE SEEN) Urine White Blood Cell Casts None seen (NONE SEEN) Urine Mucus None seen (None Seen) Urine Trichomonas None seen (NONE SEEN) Urine Yeast None (NONE SEEN) Urinalysis Comment None White Blood Count 8.2th/mm3 (3.8-10.1) Red Blood Count 3.24mil/mm3 (3.90-5.20) Hemoglobin 10.0g/dL (12.0-15.6) Hematocrit 29.6% (35.0-46.0) Mean Corpuscular Volume 91.4fL (81-100) Mean Corpuscular Hemoglobin 30.9pg (27.0-35.0) Mean Corpuscular Hemoglobin Concent 33.8% (32.0-37.0) Red Cell Distribution Width 11.9% (12.3-15.4) Platelet Count 221bil/L (150-400) Neutrophils (%) (Auto) 64.4% (40-74) Lymphocytes (%) (Auto) 25.0% (14-46) Monocytes (%) (Auto) 6.8% (4-12) Eosinophils (%) (Auto) 3.2% (0-5) Basophils (%) (Auto) 0.2% (0-3) Sodium Level 137mEq/L (134-144) Potassium Level 3.4mEq/L (3.5-5.2) Chloride Level 102mEq/L (97-108) Carbon Dioxide Level 21mmol/L (18-29) Blood Urea Nitrogen 6mg/dL (8-27) Creatinine 0.49mg/dL (0.57-1.00) Estimat Glomerular Filtration Rate 170mL/min (>59) Glucose Level 101mg/dL (60-99) Calcium Level 8.4mg/dL (8.5-10.1) Phosphorus Level 3.7mg/dL (2.5-4.9) Magnesium Level 1.7mg/dL (1.6-2.6) Total Bilirubin 0.3mg/dL (0.0-1.2) Aspartate Amino Transf (AST/SGOT) 19U/L (0-50) Alanine Aminotransferase (ALT/SGPT) 12U/L (0-32) Alkaline Phosphatase 60U/L (25-165) Total Protein 6.1g/dL (6.4-8.4) Albumin 3.1g/dL (3.4-5.0) Discharge Medications Discharge Medications Ciprofloxacin (Ciprofloxacin) 500 Mg/5 Ml Lizette.mc.rec 500 MG PO BID Prescribed by: JOSSELIN RINCON MD Fish Oil/Dha/Epa (Fish Oil 1,200 mg Fish Oil) 1 Each Capsule 1 EACH PO DAILY ( Reported) Pantoprazole DR (Protonix) 20 Mg Tablet 20 MG PO BID Prescribed by: DELROY PAYNE MD Psyllium Husk (with Sugar) (Metamucil Powder) 538 Gm Powder 538 GM PO TIDWM Prescribed by: JOSSELIN RINCON MD Valsartan (Valsartan) 80 Mg Tablet 80 MG PO DAILY (Reported) As needed ([Docusate Sodium]) 250 MG CAPSULE 250 MG PO TID PRN PRN For Constipation Prescribed by: JOSSELIN RINCON MD Acetaminophen (Acetaminophen) 325 Mg Tablet 650 MG PO Q4H PRN PRN For Fever ( Reported) Acetaminophen (Tylenol Arthritis) 650 Mg Tablet.er 650 MG PO Q6H PRN PRN For Pain Prescribed by: JOSSELIN RINCON MD Gluc/Melquiades-MSM#1/Vit C/Giovanni/Bor (Qutrzhq-Bizvm-ZXU Complex Cplt) 1 Each Tablet 1 EACH PO DAILY PRN PRN JOINT PAIN (Reported) Sennosides (Senna) 8.6 Mg Tablet 17.2 MG PO BID PRN PRN For Constipation Prescribed by: JOSSELIN RINCON MD Followup Plan Disposition: home Follow-up plan Please follow up with your primary doctor in 2weeks Patient Instructions You were hospitalized with severe constipation. Your symptoms were greatly improved with supportive tx. Please note that you have to continue bowel regimen as above to prevent severe constipation Follow-up Provider: Anh Allison MD Follow-up with PCP in: 2 weeks Time spent 65min Josselin Rincon MD Nov 30, 2016 16:50
== END 2016-11-30 15:55 | disposition home or self-care (01) | DRG 389 ==
LOC: SED 19:35 → OSC 11-27 01:02 → OBSVTOIN 11-27 01:02
PROVIDERS: ADMIT Hospitalist; ATTEND Hospitalist
DX: K56.7 Ileus, unspecified (principal); E87.1 Hypo-osmolality and hyponatremia; E87.2 Acidosis; K92.1 Melena; R31.0 Gross hematuria; N30.91 Cystitis, unspecified with hematuria; B96.20 Unspecified Escherichia coli [E. coli] as the cause of diseases classified elsewhere; I10 Essential (primary) hypertension; G20 Parkinson's disease; K21.9 Gastro-esophageal reflux disease without esophagitis; E78.5 Hyperlipidemia, unspecified

== ENCOUNTER 2016-12-04 12:31 | Emergency (ER) | payer MEDICARE, MEDICAID ==
[~2016-12-04] VITALS: Ht 144.8 cm; Wt 63.6 kg
[~2016-12-04 12:31] MED LIST changes: +ACET-2766 PO; +CIPR500S3 PO; +Docusate Sodium PO; +PSYL798P2 PO; +SENN-133 PO
[2016-12-04 12:40] VITALS: BP 186/59; PULSE 66; RESP 26; O2SAT 100
--- NOTE | 2016-12-04 12:44 | ED.REPORT ---
HPI-General Illness Date of Service Dec 04, 2016 ED Provider: Cleveland Whitt DO The patient is an 89 year old female with a medical history including Parkinson' s syndrome, hypertension, and GERD who presents to the ED accompanied by her family with diffuse abdominal pain onset yesterday. The pt was discharged 2 days ago from [facility] with a UTI on a course of ciprofloxacin 100 mg twice a day. The family provides the hx as the pt is nonverbal and somnolent. They report that the pt has been in discomfort and is still experiencing UTI symptoms including increased urination. Yesterday, the patient was able to walk, smiling , and conversing normally. Today the patient is somnolent and laying in bed, unable to get up. She did not recognize a family member and could not say her daughter's name. On a normal day, she is able to ambulate independently. She has been vacillating back and forth between baseline and worsening symptoms. The patient is of [place] descent speaking Mandarin only using her grandson as a conveyor monitor. Nursing Notes Stated Complaint: UTI Nursing Notes Reviewed: Yes Allergies: Coded Allergies: No Known Allergies (Unverified , 11/23/16) Scheduled Cephalexin (Keflex) 500 Mg Capsule 250 MG PO QID Ciprofloxacin (Ciprofloxacin) 500 Mg/5 Ml Lizette.mc.rec 500 MG PO BID Fish Oil/Dha/Epa (Fish Oil 1,200 mg Fish Oil) 1 Each Capsule 1 EACH PO DAILY Pantoprazole DR (Protonix) 20 Mg Tablet 20 MG PO BID Psyllium Husk (with Sugar) (Metamucil Powder) 538 Gm Powder 538 GM PO TIDWM Valsartan (Valsartan) 80 Mg Tablet 80 MG PO DAILY Scheduled PRN ([Docusate Sodium]) 250 MG CAPSULE 250 MG PO TID PRN PRN For Constipation Acetaminophen (Acetaminophen) 325 Mg Tablet 650 MG PO Q4H PRN PRN For Fever Acetaminophen (Tylenol Arthritis) 650 Mg Tablet.er 650 MG PO Q6H PRN PRN For Pain Gluc/Melquiades-MSM#1/Vit C/Giovanni/Bor (Gtitjyv-Pgfiy-EFG Complex Cplt) 1 Each Tablet 1 EACH PO DAILY PRN PRN JOINT PAIN Sennosides (Senna) 8.6 Mg Tablet 17.2 MG PO BID PRN PRN For Constipation General Time Seen by MD: 12:41 Chief Complaint Abdominal pain Hx Obtained From: Daughter, Other family... (Grandson), Durable Medical Equipment Technician Arrived By: Walk-in Sudden in Onset?: Yes Onset Occurred: Yesterday Symptom Duration: Since onset Location: : Abdomen Quality: Painful Severity: Current: Moderate Recent Healthcare: Recent doctor visit, Recent hospitalization Similar Sx Previous: Yes Past Medical History Past Medical History Notes: PCP: Dr. Allison Admitted 04/05/2015 for headache, lightheadedness, hypertension MRI/MRA brain April 10 negative acute disease Echocardiogram March 2015 EF of 6065% Past Medical History Parkinson's Syndrome Denies PR. Arthritis, R knee GERD Pneumonia Hypertension Dyslipidemia Anemia Urinary incontinence Reports: Hyperlipidemia, Hypertension Reports: Urinary tract infection Past Surgical History None reported Smoking History Never Smoker Social History Alcohol Use: Denies alcohol use Drug Use: Denies drug use Other Social History: Good social support, Local resident Occupation lives with family 06/13/2016 Ambulatory Status Independent Review of Systems Unable to Obtain ROS Patient condition Physical Exam Vital Signs Vital Signs Date Time Temp Pulse Resp B/P Pulse Ox O2 Delivery O2 Flow Rate FiO2 12/04/16 12:40 36.8 66 26 186/59 100 Room Air reviewed Initial VS: Reviewed Distress / Hydration: Positive: Distress mild Appearance / Presentation: Positive: Frail elderly mildly uncomfortable Head / Eyes: Atraumatic, Normocephalic, PERRL, EOMI Respiratory / Chest: No respiratory distress tachypneic Cardiovascular: Heart rate NL, Regular rhythm, Heart sounds NL hypertensive Abdomen: Non-tender Bowel Sounds / Distention: Positive: Distention mild Upper Extremities Upper Extremity / MS: Atraumatic, Inspection NL, No deformity Lower Extremity / Pelvis / MS: Atraumatic, Inspection NL, No deformity Neurologic: Oriented X3, Speech NL, No motor deficits, No sensory deficits, CN II - XII intact, Reflexes equal bilat Interpretation & Diagnostics Lab Results Interpretation Result Diagram: 12/04/16 1302 12/04/16 1302 Test 12/04/16 13:01 12/04/16 13:02 12/04/16 13:10 Urine Color Straw (YELLOW) Urine Appearance Hazy (CLEAR,HAZY) Urine pH 7.5 (5.0-8.0) Urine Specific [place] 1.005 (1.003-1.035) Urine Protein Negativemg/dL (NEG,TRACE) Urine Glucose (UA) Negativemg/dL (NEGATIVE) Urine Ketones Negativemg/dL (NEGATIVE) Urine Occult Blood Negative (NEGATIVE) Urine Nitrite Negative (NEGATIVE) Urine Bilirubin Negative (NEGATIVE) Urine Urobilinogen Normalmg/dL (NORMAL) Urine Leukocyte Esterase Trace (NEGATIVE) Urine RBC 0-2/hpf (0-2) Urine WBC 0-5/hpf (0-5) Urine Epithelial Cells Occasional/hpf (NONE-MOD) Urine Crystals None seen (NONE SEEN) Urine Bacteria None/hpf (NONE-FEW) Urine Hyaline Casts None/lpf (NONE) Urine Granular Casts None seen (NONE SEEN) Urine Waxy Casts None seen (NONE SEEN) Urine Red Blood Cell Casts None seen (NONE SEEN) Urine White Blood Cell Casts None seen (NONE SEEN) Urine Mucus None seen (None Seen) Urine Trichomonas None seen (NONE SEEN) Urine Yeast None (NONE SEEN) Urinalysis Comment None Urine Culture Reflexed Indicated White Blood Count 6.2th/mm3 (3.8-10.1) Red Blood Count 3.52mil/mm3 (3.90-5.20) Hemoglobin 11.1g/dL (12.0-15.6) Hematocrit 31.7% (35.0-46.0) Mean Corpuscular Volume 90.1fL (81-100) Mean Corpuscular Hemoglobin 31.5pg (27.0-35.0) Mean Corpuscular Hemoglobin Concent 35.0% (32.0-37.0) Red Cell Distribution Width 12.4% (12.3-15.4) Platelet Count 311bil/L (150-400) Neutrophils (%) (Auto) 42.0% (40-74) Lymphocytes (%) (Auto) 46.5% (14-46) Monocytes (%) (Auto) 8.4% (4-12) Eosinophils (%) (Auto) 2.1% (0-5) Basophils (%) (Auto) 0.5% (0-3) Sodium Level 130mEq/L (134-144) Potassium Level 3.6mEq/L (3.5-5.2) Chloride Level 95mEq/L (97-108) Carbon Dioxide Level 18mmol/L (18-29) Blood Urea Nitrogen 9mg/dL (8-27) Creatinine 0.52mg/dL (0.57-1.00) Estimat Glomerular Filtration Rate 159mL/min (>59) Glucose Level 109mg/dL (60-99) Calcium Level 9.1mg/dL (8.5-10.1) Magnesium Level 2.1mg/dL (1.6-2.6) Total Bilirubin 0.3mg/dL (0.0-1.2) Aspartate Amino Transf (AST/SGOT) 58U/L (0-50) Alanine Aminotransferase (ALT/SGPT) 72U/L (0-32) Alkaline Phosphatase 67U/L (25-165) Troponin T < 0.010ug/L (0.0-0.011) Total Protein 7.8g/dL (6.4-8.4) Albumin 3.6g/dL (3.4-5.0) Lactic Acid Level 1.4mmol/L (0.4-2.0) ECG Interpretation ECG Interpretation: non-specific ST changes Time: 13:41 Interpreted by: ED physician Normal ECG Interpretation: Normal sinus rhythm (rate 76) X-Ray Chest Interpretation Chest Xray Interpretation: IMPRESSION: 1. Enlargement of the heart with increased perihilar markings may represent pulmonary vascular congestion. Atypical pneumonia or chronic lung changes may also have this appearance. Please correlate clinically. 2. No consolidating pneumonia. Dictated by: Paul Oropeza M.D. on 12/04/2016 at 13:26 Approved by: Paul Oropeza M.D. on 12/04/2016 at 13:28 View: Portable Interpretation / Wet Read by: Interpret - Radiologist CT Abd / Pelvis Interpretation IMPRESSION: 1. Degree of perirectal/anal edema has decreased in the interim. Additionally, the amount of stool within the rectal vault is within normal limits on the current exam. There is no bowel obstruction. 2. Prominent distention of the urinary bladder with corresponding mild bilateral hydroureter is of doubtful significance. 3. Agevf-bh-pyvdlcyi sized hiatal hernia with corresponding thickening of the distal esophageal wall. This could potentially be related to reflux esophagitis. Please correlate clinically. Dictated by: Paul Oropeza M.D. on 12/04/2016 at 13:37 Approved by: Paul Oropeza M.D. on 12/04/2016 at 13:49 Study type: Abdominal CT no contrast Interpretation / Wet Read by: Interpret - Radiologist Re-Eval/Medical Decision Med Decision/Clinical Course Patient complains of suprapubic pain and concern for recurrent UTI. Based on her clinical exam in the ER it appears that she has urinary retention. He is otherwise neurologically intact I do not suspect pathology such as spinal abscess or cauda equina syndrome, additionally she is afebrile with a normal white count and a noninfected urine. We will place a Baker catheter, and Keflex for prophylaxis. Recommend following up with urology and primary care in the next few days as needed. Counseled Regarding: Diagnosis, Lab results, Need for follow-up, When/why to return to ED Discharge & Departure Primary Impression: Urinary retention Disposition: Home Discharge Condition All VS Reviewed: Yes Condition: Stable Patient Instructions: Baker Catheter Placement and Care (ED) Additional Instructions: Thank you for entrusting us with your care today. I have attached instructions for the Baker catheter. I am sending you home with the antibiotic Keflex. Make a follow up appointment in the next week with Dr. Allison. Return to the Emergency Department if you experience any new or worsening symptoms including increased abdominal pain, back pain, fever, change in urination, or blood in urine. It was a pleasure meeting you today. Referrals: Anh Allison MD (PCP) Scribe Attestation Portion of this note were transcribed by Linn Mccord. I, Dr. Whitt, personally performed the history, physical exam, and medical decision-making: I reviewed and confirmed the accuracy for the information in the transcribed note. Signed by: marina Rivera, 12/04/16 1500 copies to: Anh Allison MD, Timothy S DO Dec 04, 2016 12:44 Linn cMcord Dec 04, 2016 12:56
[2016-12-04] MEDS ORDERED: 0.9% Sodium Chloride 1,000 ML IV ONE (12:56)
[2016-12-04 13:13] LABS: BASOPHILS % (AUTO) 0.5 % (0-3); EOSINOPHILS % (AUTO) 2.1 % (0-5); MONOCYTES % (AUTO) 8.4 % (4-12); Mean Corpuscular Hemoglobin 31.5 pg (27.0-35.0); Mean Corpuscular Volume 90.1 fL (81-100); Platelet Count 311 bil/L (150-400)
[2016-12-04 13:21] LABS: APPEARANCE,URINE HAZY (CLEAR,HAZY); COLOR,URINE STRAW (YELLOW); OCCULT BLOOD,URINE NEGATIVE (NEGATIVE); PH,URINE 7.5 (5.0-8.0); UROBILINOGEN,URINE NORMAL (NORMAL)
[2016-12-04 13:25] LABS: TROPONIN T < 0.010 ug/L (0.0-0.011)
[2016-12-04 13:28] LABS: Magnesium 2.1 mg/dL (1.6-2.6)
--- NOTE | 2016-12-04 14:29 | DRSVH ---
PROCEDURE: X-RAY CHEST ONE VIEW, PORTABLE ([id number]) INDICATIONS: tachypnea TECHNIQUE: One view of the chest was acquired. COMPARISON: [facility], CR, XR CHEST 1VW (PORTABLE), 11/23/2016, 16:22. FINDINGS: Surgical changes and devices: None. Lungs and pleura: Increased lung markings are present within the infrahilar regions. There is no lob ar consolidation, effusion, or pneumothorax. Mediastinum: Mediastinal contours appear normal. Heart size is borderline prominent in size. There is aortic atherosclerosis. Bones and chest wall: No suspicious bony lesions. The bone mineralization is decreased. There are age-appropriate degenerative changes of the spine. Overlying soft tissues appear unremarkable. IMPRESSION: 1. Enlargement of the heart with increased perihilar markings may represent pulmonary vascular conge stion. Atypical pneumonia or chronic lung changes may also have this appearance. Please correlate c linically. 2. No consolidating pneumonia. Dictated by: Paul Oropeza M.D. on 12/04/2016 at 13:26 Approved by: Paul Oropeza M.D. on 12/04/2016 at 13:28
--- NOTE | 2016-12-04 14:50 | DRSVH ---
PROCEDURE: CT ABDOMEN AND PELVIS WITH CONTRAST ([id number]) INDICATIONS: Abdominal pain TECHNIQUE: After the administration of intravenous contrast, 5 mm thick sections acquired from the diaphragm to the symphysis. 5 mm coronal and sagittal reformats were acquired. For radiation dose reduction, the following was used: automated exposure control, adjustment of mA and/or kV according to patient [place]. COMPARISON: [facility], CT, CT ABD PELVIS W CON, 11/26/2016, 22:42. FINDINGS: Image quality: Diagnostic. ABDOMEN: Lung bases: Mild atelectasis is noted within the bilateral lung bases. The heart is enlarged without a significant pericardial effusion. Coronary artery atherosclerosis is present. Solid organs: The liver, spleen, adrenals, kidneys, and pancreas are unchanged. However, the ureters are larger on the current exam compared to the previous study without focal ureteral calculi evident . This is felt to be related to a prominently distended urinary bladder.. Peritoneum and bowel: There is a small hiatal hernia. Mild prominence of the distal esophageal wall is present. The stomach, duodenum, and remainder of the small bowel loops are nondistended. Mild/mo derate residual stool is identified throughout the colon. The degree of fecal loading within the rec [place] has decreased in the interim. There is no free fluid, loculated fluid collection or free air wit hin the abdomen. Previously seen edema within the soft tissues adjacent to the rectum is less promin ent on the current study. Nodes and vessels: No retroperitoneal or mesenteric adenopathy by size criteria. Aorta and inferior vena cava are normal in size. Severe aortic atherosclerosis is noted. There may be areas of narrow ing involving the common iliac arteries. There is no aneurysm. Moderate narrowing of the mid aspect of the superior mesenteric artery is noted (image 27, series 2), which is felt to be chronic, relate d to atherosclerotic changes. Bones: Age-appropriate degenerative changes of the imaged thoracolumbar spine and lower ribs are note d. No suspicious osseous lesions or acute fractures are identified. PELVIS: Soft tissues: The urinary bladder is prominently distended. No significant bladder wall thickening is identified. The uterus and ovaries are not enlarged, but are not well evaluated on this study. M ultiple collateral vessels are seen within the left adnexa and extending along the left ovarian vein. No obvious intraluminal thrombus is appreciated. No free fluid, loculated fluid collection or free air is identified. Bones: No suspicious bony lesions. No acute pelvic fractures identified. Degenerative changes of t he pelvic joints are noted. IMPRESSION: 1. Degree of perirectal/anal edema has decreased in the interim. Additionally, the amount of stool within the rectal vault is within normal limits on the current exam. There is no bowel obstruction. 2. Prominent distention of the urinary bladder with corresponding mild bilateral hydroureter is of d oubtful significance. 3. Ihjvr-mv-gfldpgkp sized hiatal hernia with corresponding thickening of the distal esophageal wall . This could potentially be related to reflux esophagitis. Please correlate clinically. Dictated by: Paul Oropeza M.D. on 12/04/2016 at 13:37 Approved by: Paul Oropeza M.D. on 12/04/2016 at 13:49
[2016-12-04] MEDS ORDERED: CEPH-512 PO (15:06)
[2016-12-04 15:50] VITALS: BP 177/58; PULSE 63; RESP 24; O2SAT 100
== END 2016-12-04 16:15 | disposition home or self-care (01) ==
LOC: EDUNIT# 12:31 → SED 12:31 → EDSEX 12:31 → EDBD 12:31 → SED 16:15
DX: R33.9 Retention of urine, unspecified (principal); I10 Essential (primary) hypertension; K21.9 Gastro-esophageal reflux disease without esophagitis; E78.5 Hyperlipidemia, unspecified; G20 Parkinson's disease; Z87.440 Personal history of urinary (tract) infections
CPT/HCPCS: 36415; 51702; 71010; 74177; 80053; 81000; 83605; 83735; 84484; 85025; 87040; 87086; 93005; 96360; 99285; J7030; Q9967

== ENCOUNTER 2016-12-06 02:13 | Emergency (ER) | payer MEDICARE, MEDICAID ==
[~2016-12-06] VITALS: Ht 129.5 cm; Wt 54.0 kg
[~2016-12-06 02:13] MED LIST changes: +CEPH-512 PO
--- NOTE | 2016-12-06 02:27 | ED.REPORT ---
HPI- Female Date of Service Dec 06, 2016 ED Provider: Jasvir Goddard MD The patient is an 89 year old female with a medical history including Parkinson' s syndrome, GERD, hypertension, and UTI who presents to the ED via EMS accompanied by her family after her Baker catheter was pulled out two hours prior to arrival. The patient currently reports lower abdominal pain and urinary retention. She denies other symptoms. Per EMS the patient's vital signs were normal and stable en route. Her Baker catheter was placed two days ago in the ED for urinary retention. She has an appointment with her PCP tomorrow morning. The patient speaks [place] Citizen Mandarin and her relative was translating. Nursing Notes Stated Complaint: CATHETER ISSUES Nursing Notes Reviewed: Yes Allergies: Coded Allergies: No Known Allergies (Unverified , 12/06/16) Scheduled Cephalexin (Keflex) 500 Mg Capsule 250 MG PO QID Ciprofloxacin (Ciprofloxacin) 500 Mg/5 Ml Lizette.mc.rec 500 MG PO BID Fish Oil/Dha/Epa (Fish Oil 1,200 mg Fish Oil) 1 Each Capsule 1 EACH PO DAILY Pantoprazole DR (Protonix) 20 Mg Tablet 20 MG PO BID Psyllium Husk (with Sugar) (Metamucil Powder) 538 Gm Powder 538 GM PO TIDWM Valsartan (Valsartan) 80 Mg Tablet 80 MG PO DAILY Scheduled PRN ([Docusate Sodium]) 250 MG CAPSULE 250 MG PO TID PRN PRN For Constipation Acetaminophen (Acetaminophen) 325 Mg Tablet 650 MG PO Q4H PRN PRN For Fever Acetaminophen (Tylenol Arthritis) 650 Mg Tablet.er 650 MG PO Q6H PRN PRN For Pain Gluc/Melquiades-MSM#1/Vit C/Giovanni/Bor (Ogihitr-Qidor-ILY Complex Cplt) 1 Each Tablet 1 EACH PO DAILY PRN PRN JOINT PAIN Sennosides (Senna) 8.6 Mg Tablet 17.2 MG PO BID PRN PRN For Constipation General Time Seen by MD: 02:25 Chief Complaint Other (Baker Catheter Problem) Hx Obtained From: Patient, Other family..., EMS Arrived By: Ambulance Sudden in Onset?: Yes Onset Occurred: 1 - 4 hours ago Symptom Duration: Since onset Location: : Abdomen lower Quality: Painful Severity: Current: Moderate Severity: Maximum: Moderate Pertinent Negative: Relieved by nothing Recent Healthcare: Recent doctor visit Past Medical History Past Medical History Notes: PCP: Dr. Allison Admitted 04/05/2015 for headache, lightheadedness, hypertension MRI/MRA brain April 10 negative acute disease Echocardiogram March 2015 EF of 6065% Past Medical History Parkinson's Syndrome Denies TX. Arthritis, R knee GERD Pneumonia Hypertension Dyslipidemia Anemia Urinary incontinence Reports: Hyperlipidemia, Hypertension Reports: Urinary tract infection Past Surgical History None reported Smoking History Never Smoker Social History Alcohol Use: Denies alcohol use Drug Use: Denies drug use Other Social History: Good social support, Local resident Occupation lives with family 06/13/2016 Ambulatory Status Independent Review of Systems Review of Systems Note: + Baker catheter pulled out, urinary retention Constitutional: Denies: Fever GI: Reports: Abdominal pain (Lower), Denies: Diarrhea, Vomiting Complete sys rev & neg: except as marked. Respiratory: Denies: Non-productive cough, Shortness of breath Physical Exam Initial Vital Signs Vital Signs (First) Date Time Temp Pulse Resp B/P Pulse Ox O2 Delivery O2 Flow Rate FiO2 12/06/16 02:29 36.8 61 22 157/60 99 Room Air Initial VS: Reviewed Head / Eyes: Atraumatic, Normocephalic ENT: Conjunctiva normal, No scleral icterus Neck: Supple, Full range of motion Respiratory: Breath sounds normal, Clear to auscultation, No respiratory distress Cardiovascular: Regular rate & rhythm, Heart sounds normal Skin: Warm, Dry, No cyanosis Neurologic: Alert, Oriented, Nonfocal Psychiatric: Mood/affect normal, Behavior normal, Normal thought content General/Constitutional: Awake, Alert, No acute distress, Well hydrated Abdomen: Soft Tenderness/Guarding/Rebound: Positive: Tender suprapubic (Mild) Re-Eval/Medical Decision Source of Hx: Old records Re-Evaluation/Progress : Time of Eval: 02:33 Patient Status: Condition improved Re-Evaluation/Progress Note: Baker catheter has been replaced. Discussed with patient and family physical exam findings, diagnosis, and plan for discharge. Follow-up and return to the ER instructions given. Patient agrees with plan for care and all questions were addressed. Counseled Regarding: Diagnosis, Need for follow-up, When/why to return to ED Discharge & Departure Impression: Primary Impression: Baker catheter problem Encounter type: initial encounter Qualified Code: T83.9XXA - Unspecified complication of genitourinary prosthetic device, implant and graft, initial encounter Disposition: Home Discharge Condition All VS Reviewed: Yes Condition: Improved Patient Instructions: Baker Catheter Placement and Care (ED) Additional Instructions: The catheter was replaced. Please follow the instructions included. Talk to Dr. Allison about a urology referral and about when the catheter needs to come out. Referrals: Anh Allison MD (PCP) Scribe Attestation Portions of this note were transcribed by Wanda Riley. I, Dr. Goddard, personally performed the history, physical exam, and medical decision-making; I reviewed and confirmed the accuracy of the information in the transcribed note. Signed by: Durga Garcia, 12/06/2016, 03:25 copies to: Anh Allison MD, Howard L MD Dec 06, 2016 02:26 WANDA RILEY Dec 06, 2016 02:34
[2016-12-06 02:29] VITALS: BP 157/60; PULSE 61; RESP 22; O2SAT 99
== END 2016-12-06 03:05 | disposition home or self-care (01) ==
LOC: EDSEX 02:13 → SED 02:13 → EDBD 02:13 → SED 03:05
DX: T83.091A Other mechanical complication of indwelling urethral catheter, initial encounter (principal); Y84.6 Urinary catheterization as the cause of abnormal reaction of the patient, or of later complication, without mention of misadventure at the time of the procedure; Y93.9 Activity, unspecified; Y92.9 Unspecified place or not applicable; Y99.8 Other external cause status; I10 Essential (primary) hypertension; K21.9 Gastro-esophageal reflux disease without esophagitis; E78.5 Hyperlipidemia, unspecified; G20 Parkinson's disease; Z87.440 Personal history of urinary (tract) infections; Z87.01 Personal history of pneumonia (recurrent)